=== PATIENT | male | born 1995 | race Caucasian/White ===

== ENCOUNTER 2017-12-20 23:07 | Inpatient (IN) | payer OTHER, BC ==
[2017-12-20] MEDS ORDERED: Ondansetron 4 MG/2 ML SDV IVPUSH ONE (23:41)
[2017-12-20] MEDS ORDERED: HYDROmorphone 0.5 MG/0.5 ML SYRINGE IVPUSH STA (23:43)
[2017-12-20] MEDS ORDERED: Sodium Chloride 0.9% 1,000 ML IV SCH (23:45)
--- NOTE | 2017-12-20 23:49 | EDM.PDOC ---
ED HPI GENERAL MEDICAL PROBLEM - General Chief Complaint: Abdominal Pain Stated Complaint: ABDOMINAL PAIN Time Seen by Provider: 12/20/17 23:30 Source of Information: Reports: Patient, Significant Other (Fiance) History Limitations: Reports: No Limitations - History of Present Illness INITIAL COMMENTS - FREE TEXT/NARRATIVE: The patient states that he had right shoulder, mid and lower back pain yesterday , then some left flank pain today. He presents, however, primarily complaining of lower abdominal pain since this morning, and a fever this afternoon. His abdominal pain is sharp in character. It is worse when he exhales and with movement. His fever was up to 101 this afternoon, then resolved around 18:00 this evening. The patient also complains of a headache all day today. He has had nausea, but no emesis. He has not had a bowel movement in the past 2 or 3 days. No recent diarrhea. He does not have dysuria, but does state that he has had urinary frequency, although no urinary urgency. No gross hematuria. No prior similar symptoms. Here in the ED, the patient is afebrile. The patient's last oral solid food was around 19:15 this evening. The patient's PCP is Dr. Anthony. Lower Abdominal Pain Score (Numeric/FACES): 5 - Related Data Allergies Allergy/AdvReac Type Severity Reaction Status Date / Time No Known Allergies Allergy Verified 12/20/17 23:18 Home Meds: Home Meds . [No Known Home Meds] 12/20/17 [History] Past Medical History - Past Surgical History HEENT Surgical History: Reports: Myringotomy w Tube(s) (bilateral) Social & Family History - Tobacco Use Smoking Status *Q: Never Smoker Tobacco Use Within Last Twelve Months: Cigars (on occasion) - Alcohol Use Alcohol Use History: Yes Alcohol Use Frequency: Socially (rarely to excess) - Recreational Drug Use Recreational Drug Use: No - Living Situation & Occupation Living situation: Reports: Single, with Significant Other (Fiance) Occupation: Employed ([employer]) ED ROS GENERAL - Review of Systems Review Of Systems: ROS reveals no pertinent complaints other than HPI. ED EXAM, GI/ABD - Physical Exam Exam: See Below Exam Limited By: No Limitations General Appearance: Alert, WD/WN, No Apparent Distress Eyes: Bilateral: Normal Appearance, EOMI Ears: Normal External Exam, Hearing Grossly Normal Nose: Normal Inspection, No Blood Throat/Mouth: Normal Inspection, Normal Lips, Normal Voice, No Airway Compromise Head: Atraumatic, Normocephalic Neck: Normal Inspection, Full Range of Motion Respiratory/Chest: No Respiratory Distress, Lungs Clear, Normal Breath Sounds, No Accessory Muscle Use Cardiovascular: Normal Peripheral Pulses, Regular Rate, Rhythm, No Edema, No Gallop, No JVD, No Murmur, No Rub GI/Abdominal Exam: Normal Bowel Sounds, Soft, No Organomegaly, No Distention, No Abnormal Bruit, No Mass, Tender (Primarily in the epigastrium and suprapubically, but there is also tenderness generally, including the left and right sides of the abdomen.), Other (Obese). No: Rebound (Male) Exam: Deferred Rectal (Males) Exam: Deferred Back Exam: Normal Inspection, Full Range of Motion. No: CVA Tenderness (L), CVA Tenderness (R) Extremities: Normal Inspection, Normal Range of Motion, No Pedal Edema, Normal Capillary Refill Neurological: Alert, Oriented, Normal Cognition, No Motor/Sensory Deficits Psychiatric: Normal Affect Skin Exam: Warm, Dry, Intact, Normal Color, No Rash Course - Vital Signs Last Recorded V/S: Last Vital Signs Temp 37.1 C 12/20/17 23:16 Pulse 98 12/20/17 23:16 Resp 16 12/20/17 23:16 BP 150/81 H 12/20/17 23:16 Pulse Ox 99 12/20/17 23:16 - Orders/Labs/Meds Orders: Active Orders 24 hr Category Date Time Status Abdomen Pelvis w Cont [CT] Stat Exams 12/20/17 23:42 Taken UA W/MICROSCOPIC [URIN] Stat Lab 12/20/17 23:50 Ordered Sodium Chloride 0.9% [Normal Saline] 1,000 ml Med 12/20/17 23:45 Active IV ASDIRECTED Medication Orders Sodium Chloride (Normal Saline) 1,000 mls @ 150 mls/hr IV ASDIRECTED MELISSA Last Admin: 12/20/17 23:52 Dose: 150 mls/hr Labs: Laboratory Tests 12/20/17 12/20/17 12/20/17 Range/Units 23:50 23:50 23:50 WBC 13.55 H (4.23-9.07) K/mm3 RBC 5.33 (4.63-6.08) M/mm3 Hgb 15.2 (13.7-17.5) gm/L Hct 43.9 (40.1-51.0) % MCV 82.4 (79.0-92.2) fl MCH 28.5 (25.7-32.2) pg MCHC 34.6 (32.2-35.5) g/dl RDW Std Deviation 38.4 (35.1-43.9) fL Plt Count 231 (163-337) K/mm3 MPV 10.0 (9.4-12.3) fl Neutrophils % (Manual) 50 (40-60) % Band Neutrophils % 0 (0-10) % Lymphocytes % (Manual) 15 L (20-40) % Atypical Lymphs % 20 % Monocytes % (Manual) 11 H (2-10) % Eosinophils % (Manual) 2 (0.8-7.0) % Basophils % (Manual) 2 H (0.2-1.2) Toxic Granulation 2+ moderate Dohle Bodies Platelet Estimate Adequate Plt Morphology Comment See note RBC Morph Comment Normal Sodium 139 (136-145) mEq/L Potassium 3.8 (3.5-5.1) mEq/L Chloride 103 (98-107) mEq/L Carbon Dioxide 27 (21-32) mEq/L Anion Gap 12.8 (5-15) BUN 12 (7-18) mg/dL Creatinine 1.1 (0.7-1.3) mg/dL Est Cr Clr Drug Dosing 120.39 mL/min Estimated GFR (MDRD) > 60 (>60) mL/min BUN/Creatinine Ratio 10.9 L (14-18) Glucose 112 H (74-106) mg/dL Calcium 9.3 (8.5-10.1) mg/dL Total Bilirubin 0.6 (0.2-1.0) mg/dL AST 61 H (15-37) U/L ALT 118 H (16-63) U/L Alkaline Phosphatase 67 (46-116) U/L Total Protein 7.7 (6.4-8.2) g/dl Albumin 4.0 (3.4-5.0) g/dl Globulin 3.7 gm/dL Albumin/Globulin Ratio 1.1 (1-2) Lipase 1071 H (73-393) U/L Urine Color Yellow (Yellow) Urine Appearance Slt cloudy H (Clear) Urine pH 7.0 (5.0-8.0) Ur Specific [place] 1.020 (1.005-1.030) Urine Protein Negative (Negative) Urine Glucose (UA) Negative (Negative) Urine Ketones Negative (Negative) Urine Occult Blood Negative (Negative) Urine Nitrite Negative (Negative) Urine Bilirubin Negative (Negative) Urine Urobilinogen 0.2 (0.2-1.0) Ur Leukocyte Esterase Negative (Negative) Urine RBC 0-5 (0-5) /hpf Urine WBC 0-5 (0-5) /hpf Ur Epithelial Cells 0-5 (0-5) /hpf Amorphous Sediment Many H (NOT SEEN) /hpf Urine Bacteria Rare (FEW) /hpf Hyaline Casts 0-5 (0-5) /lpf Urine Mucus Not seen (FEW) /hpf Meds: Medications Generic Name Dose Route Start Last Admin Trade Name Freq PRN Reason Stop Dose Admin Sodium Chloride 1,000 mls @ 150 mls/hr 12/20/17 23:45 12/20/17 23:52 Normal Saline IV 150 mls/hr ASDIRECTED MELISSA Administration Discontinued Medications Generic Name Dose Route Start Last Admin Trade Name Freq PRN Reason Stop Dose Admin Hydromorphone HCl 1 mg 12/20/17 23:43 12/20/17 23:54 Dilaudid IVPUSH 12/20/17 23:44 1 mg ONETIME STA Administration Ondansetron HCl 4 mg 12/20/17 23:41 12/20/17 23:52 Zofran IVPUSH 12/20/17 23:42 4 mg ONETIME ONE Administration - Re-Assessments/Exams Free Text/Narrative Re-Assessment/Exam: 12/21/17 02:50 CT of the abdomen and pelvis with oral and IV contrast is read by [facility] as: 1. Hepatomegaly, hepatic steatosis. 2. Possible mild peripancreatic mesenteric fat stranding. Possible acute pancreatitis. Correlation with serum lipase. 3. No CT findings of acute appendicitis. 12/21/17 02:56 Test results discussed with the patient and his fiance. The patient appears to have mild/early pancreatitis. I'm recommending admission to the hospital for IV fluid, pain medication, and anti-nausea medication as needed. He is agreeable. Paging Dr. Hummel. 12/21/17 02:[address] Hummel at 02:57. He accepts the patient for admission, and asked that I write bridge orders. Departure - Departure Time of Disposition: 02:59 Disposition: Admitted As Inpatient 64 Condition: Fair Clinical Impression: Acute pancreatitis - Discharge Information *PRESCRIPTION DRUG MONITORING PROGRAM REVIEWED*: Not Applicable *COPY OF PRESCRIPTION DRUG MONITORING REPORT IN PATIENT BRITNEY: Not Applicable - My Orders Last 24 Hours: My Active Orders 12/20/17 23:42 Abdomen Pelvis w Cont [CT] Stat 12/20/17 23:45 Sodium Chloride 0.9% [Normal Saline] 1,000 ml IV ASDIRECTED 12/20/17 23:50 UA W/MICROSCOPIC [URIN] Stat - Assessment/Plan Last 24 Hours: My Active Orders 12/20/17 23:42 Abdomen Pelvis w Cont [CT] Stat 12/20/17 23:45 Sodium Chloride 0.9% [Normal Saline] 1,000 ml IV ASDIRECTED 12/20/17 23:50 UA W/MICROSCOPIC [URIN] Stat
[2017-12-21] MEDS ORDERED: HYDROmorphone 2 MG Tab PO PRN (04:03)
[2017-12-21] MEDS ORDERED: Ondansetron 4 MG/2 ML SDV IVPUSH PRN (04:04)
[2017-12-21] MEDS ORDERED: Sodium Chloride 0.9% 1,000 ML IV SCH ×2 (04:15)
[2017-12-21] MEDS ORDERED: HYDROmorphone 0.5 MG/0.5 ML SYRINGE IVPUSH PRN ×2 (05:49→06:32)
[2017-12-21] MEDS ORDERED: LORazepam 2 MG/ML SDV IVPUSH PRN (06:25)
[2017-12-21] MEDS ORDERED: Metoprolol Tartrate 5 MG/5 ML SDV IVPUSH PRN (06:25)
[2017-12-21] MEDS ORDERED: hydrALAZINE 20 MG/ML SDV IVPUSH PRN (06:25)
[2017-12-21] MEDS ORDERED: Bisacodyl 5 MG Tab PO PRN (06:27)
[2017-12-21] MEDS ORDERED: Acetaminophen 325 MG Tab PO PRN (06:27)
[2017-12-21] MEDS ORDERED: Promethazine 12.5 MG in Sodium Chloride 0.9% 50 ML IV PRN (06:27)
[2017-12-21] MEDS ORDERED: Albuterol/Ipratropium 3.0-0.5 MG/3 ML Neb Soln NEB PRN (06:27)
[2017-12-21] MEDS ORDERED: Temazepam 15 MG Cap PO PRN (06:27)
[2017-12-21] MEDS ORDERED: Ondansetron 4 MG/2 ML SDV IV PRN (06:27)
[2017-12-21] MEDS ORDERED: Polyethylene Glycol 3350 Powder 17 GM Packet PO PRN (06:27)
[2017-12-21] MEDS ORDERED: Docusate Sodium 100 MG Cap PO PRN (06:27)
[2017-12-21] MEDS: Acetaminophen/HYDROcodone 325-5 MG Tab PO PRN ×3 (07:10→21:05)
--- NOTE | 2017-12-21 07:27 | PCM.HP ---
H&P History of Present Illness - General Date of Service: 12/21/17 Admit Problem/Dx: Admission Diagnosis/Problem Admission Diagnosis/Problem Pancreatitis Source of Information: Patient, Old Records, Provider, RN, RN Notes Reviewed History Limitations: Reports: No Limitations - History of Present Illness Initial Comments - Free Text/Narative: Earnest Benito is a 22yo male who presented to our ED accompanied by his fiance late last night complaining of lower abdominal pain which started that morning and fever that afternoon. He also reports having had a right shoulder along with mid and lower back pain on 12/19/17. Reports abdominal pain is sharp in character and worse with exhalation or movement. Fever was up to 101 prior to coming to the ED however it resolved around 6 PM. Has reported a headache. No nausea or emesis. Denies any bowel movement last 2-3 days. No recent diarrhea. Reports increased urinary frequency however nourgency or dysuria. He is afebrile in the ED. in the ED temperature 37.1 Celsius. Pulse 98. Respirations 16. Blood pressure 150/81. Pulse ox 99%. CBC shows a elevated white count of 13.55. RBCs are normal at 5.33. Hemoglobin 15.2. Hematocrit 43.9. He is normocytic. Pulses are good at 231,000. Neutrophils are normal at 50%. There is no bandemia. Sodium was good at 139. Potassium 3.8. Chloride 103. Carbon dioxide 27. Anion gap 12.8. BUN is 12. Creatinine 1.1. EGFR greater than 60. Glucose is slightly high at 112. Calcium is 9.3. Bilirubin 0.6. AST is elevated at 61, ALT elevated at18, alkaline phosphatase is 67. Albumin is 4.0. Lipase is very high at 1071. UA is grossly normal. He is given 1 mg Dilaudid for pain. 4 mg IV push Zofran and started on saline at [address] scan of the abdomen and pelvis with oral and IV contrast is interpreted by virtual radiology as: "1. Hepatomegaly, hepatic steatosis. 2. Possible mild peripancreatic mesenteric fat stranding. Possible acute pancreatitis Correlation with serum lipase. 3. No cT findings of acute appendicitis. He subsequently admitted to the medical floor. He carries a history of migraines. He is a full code. His PCP is Dr. Anthony here at [facility]. Lower Abdominal Pain Score (Numeric/FACES): 5 - Related Data Allergies/Adverse Reactions: Allergies Allergy/AdvReac Type Severity Reaction Status Date / Time No Known Allergies Allergy Verified 12/21/17 05:52 Home Medications: Home Meds . [No Known Home Meds] 12/20/17 [History] Past Medical History - Past Health History Medical/Surgical History: Denies Medical/Surgical History Genitourinary History: Reports: Pyelonephritis - Past Surgical History Head Surgeries/Procedures: Reports: None HEENT Surgical History: Reports: Myringotomy w Tube(s) Male Surgical History: Reports: None Social & Family History - Family History Family Medical History: Noncontributory - Tobacco Use Smoking Status *Q: Former Smoker Used Tobacco, but Quit: No Second Hand Smoke Exposure: No - Caffeine Use Caffeine Use: Reports: Coffee - Recreational Drug Use Recreational Drug Use: No - Living Situation & Occupation Living situation: Reports: Single, with Significant Other (Fiance) Occupation: Employed ([employer]) H&P Review of Systems - Review of Systems: Review Of Systems: See Below General: Reports: Fever, Chills, Malaise, Weakness, Fatigue. Denies: Decreased Appetite, Weight Loss, Weight Gain HEENT: Reports: Headaches, Visual Changes. Denies: Eye Pain, Post Nasal Drip, Sore Throat, Vertigo Pulmonary: Reports: No Symptoms. Denies: Shortness of Breath, Wheezing, Cough, Sputum Cardiovascular: Reports: No Symptoms. Denies: Chest Pain, Palpitations, Dyspnea on Exertion, Edema, Lightheadedness Gastrointestinal: Reports: Abdominal Pain (LUQ ), Nausea. Denies: Constipation , Diarrhea, Vomiting Genitourinary: Reports: No Symptoms Musculoskeletal: Reports: No Symptoms Skin: Reports: No Symptoms Psychiatric: Reports: No Symptoms Neurological: Reports: No Symptoms Hematologic/Lymphatic: Reports: No Symptoms Immunologic: Reports: No Symptoms Exam - Exam Exam: See Below - Vital Signs Vital Signs: Last Vital Signs Temp 98.2 F 12/21/17 03:45 Pulse 110 H 12/21/17 03:45 Resp 16 12/21/17 03:45 BP 138/82 12/21/17 03:45 Pulse Ox 99 12/21/17 03:45 Weight: 225 lb 9.6 oz - Exam Quality Assessment: DVT Prophylaxis General: Alert, Oriented, Cooperative. No: Mild Distress HEENT: Conjunctiva Clear, EACs Clear, EOMI, Hearing Intact, Nares Patent, Posterior Pharynx Clear, PERRLA Neck: Supple, Trachea Midline. No: JVD Lungs: Clear to Auscultation, Normal Respiratory Effort Cardiovascular: Regular Rate, Regular Rhythm GI/Abdominal Exam: Normal Bowel Sounds, Soft, No Distention, Tender (LUQ and epigastrium on palpation ) (Male) Exam: Deferred Rectal (Males) Exam: Deferred Back Exam: Normal Inspection, Full Range of Motion Extremities: Normal Inspection, Normal Range of Motion, Non-Tender, No Pedal Edema, Normal Capillary Refill Peripheral Pulses: 2+: Posterior Tibial (L), Posterior Tibial (R), Dorsalis Pedis (L), Dorsalis Pedis (R), 3+: Radial (L), Radial (R) Skin: Warm, Dry, Intact Neurological: Cranial Nerves Intact (grossly ) Neuro Extensive - Mental Status: Alert, Oriented x3, Normal Mood/Affect, Normal Cognition, Memory Intact Psychiatric: Alert, Normal Affect, Normal Mood - Patient Data Lab Results Last 24 hrs: Laboratory Results - last 24 hr 12/20/17 12/20/17 12/20/17 Range/Units 23:50 23:50 23:50 WBC 13.55 H (4.23-9.07) K/mm3 RBC 5.33 (4.63-6.08) M/mm3 Hgb 15.2 (13.7-17.5) gm/L Hct 43.9 (40.1-51.0) % MCV 82.4 (79.0-92.2) fl MCH 28.5 (25.7-32.2) pg MCHC 34.6 (32.2-35.5) g/dl RDW Std Deviation 38.4 (35.1-43.9) fL Plt Count 231 (163-337) K/mm3 MPV 10.0 (9.4-12.3) fl Neutrophils % (Manual) 50 (40-60) % Band Neutrophils % 0 (0-10) % Lymphocytes % (Manual) 15 L (20-40) % Atypical Lymphs % 20 % Monocytes % (Manual) 11 H (2-10) % Eosinophils % (Manual) 2 (0.8-7.0) % Basophils % (Manual) 2 H (0.2-1.2) Toxic Granulation 2+ moderate Dohle Bodies Platelet Estimate Adequate Plt Morphology Comment See note RBC Morph Comment Normal Sodium 139 (136-145) mEq/L Potassium 3.8 (3.5-5.1) mEq/L Chloride 103 (98-107) mEq/L Carbon Dioxide 27 (21-32) mEq/L Anion Gap 12.8 (5-15) BUN 12 (7-18) mg/dL Creatinine 1.1 (0.7-1.3) mg/dL Est Cr Clr Drug Dosing 120.39 mL/min Estimated GFR (MDRD) > 60 (>60) mL/min BUN/Creatinine Ratio 10.9 L (14-18) Glucose 112 H (74-106) mg/dL Calcium 9.3 (8.5-10.1) mg/dL Total Bilirubin 0.6 (0.2-1.0) mg/dL AST 61 H (15-37) U/L ALT 118 H (16-63) U/L Alkaline Phosphatase 67 (46-116) U/L C-Reactive Protein (<1.0) mg/dL Total Protein 7.7 (6.4-8.2) g/dl Albumin 4.0 (3.4-5.0) g/dl Globulin 3.7 gm/dL Albumin/Globulin Ratio 1.1 (1-2) Triglycerides (<150) mg/dL Cholesterol (<200) mg/dL LDL Cholesterol Direct (<100) mg/dL HDL Cholesterol (40-59) mg/dL Lipase 1071 H (73-393) U/L Urine Color Yellow (Yellow) Urine Appearance Slt cloudy H (Clear) Urine pH 7.0 (5.0-8.0) Ur Specific [place] 1.020 (1.005-1.030) Urine Protein Negative (Negative) Urine Glucose (UA) Negative (Negative) Urine Ketones Negative (Negative) Urine Occult Blood Negative (Negative) Urine Nitrite Negative (Negative) Urine Bilirubin Negative (Negative) Urine Urobilinogen 0.2 (0.2-1.0) Ur Leukocyte Esterase Negative (Negative) Urine RBC 0-5 (0-5) /hpf Urine WBC 0-5 (0-5) /hpf Ur Epithelial Cells 0-5 (0-5) /hpf Amorphous Sediment Many H (NOT SEEN) /hpf Urine Bacteria Rare (FEW) /hpf Hyaline Casts 0-5 (0-5) /lpf Urine Mucus Not seen (FEW) /hpf // Range/Units 23:50 WBC (4.23-9.07) K/mm3 RBC (4.63-6.08) M/mm3 Hgb (13.7-17.5) gm/L Hct (40.1-51.0) % MCV (79.0-92.2) fl MCH (25.7-32.2) pg MCHC (32.2-35.5) g/dl RDW Std Deviation (35.1-43.9) fL Plt Count (163-337) K/mm3 MPV (9.4-12.3) fl Neutrophils % (Manual) (40-60) % Band Neutrophils % (0-10) % Lymphocytes % (Manual) (20-40) % Atypical Lymphs % % Monocytes % (Manual) (2-10) % Eosinophils % (Manual) (0.8-7.0) % Basophils % (Manual) (0.2-1.2) Toxic Granulation Dohle Bodies Platelet Estimate Plt Morphology Comment RBC Morph Comment Sodium (136-145) mEq/L Potassium (3.5-5.1) mEq/L Chloride (98-107) mEq/L Carbon Dioxide (21-32) mEq/L Anion Gap (5-15) BUN (7-18) mg/dL Creatinine (0.7-1.3) mg/dL Est Cr Clr Drug Dosing mL/min Estimated GFR (MDRD) (>60) mL/min BUN/Creatinine Ratio (14-18) Glucose (74-106) mg/dL Calcium (8.5-10.1) mg/dL Total Bilirubin (0.2-1.0) mg/dL AST (15-37) U/L ALT (16-63) U/L Alkaline Phosphatase (46-116) U/L C-Reactive Protein 16.0 H* (<1.0) mg/dL Total Protein (6.4-8.2) g/dl Albumin (3.4-5.0) g/dl Globulin gm/dL Albumin/Globulin Ratio (1-2) Triglycerides 120 (<150) mg/dL Cholesterol 119 (<200) mg/dL LDL Cholesterol Direct 65 (<100) mg/dL HDL Cholesterol 33.0 L (40-59) mg/dL Lipase (73-393) U/L Urine Color (Yellow) Urine Appearance (Clear) Urine pH (5.0-8.0) Ur Specific [place] (1.005-1.030) Urine Protein (Negative) Urine Glucose (UA) (Negative) Urine Ketones (Negative) Urine Occult Blood (Negative) Urine Nitrite (Negative) Urine Bilirubin (Negative) Urine Urobilinogen (0.2-1.0) Ur Leukocyte Esterase (Negative) Urine RBC (0-5) /hpf Urine WBC (0-5) /hpf Ur Epithelial Cells (0-5) /hpf Amorphous Sediment (NOT SEEN) /hpf Urine Bacteria (FEW) /hpf Hyaline Casts (0-5) /lpf Urine Mucus (FEW) /hpf Result Diagrams: 12/20/17 23:50 12/20/17 23:50 - Problem List (1) Acute pancreatitis SNOMED Code(s): 382731077 ICD Code: K85.90 - ACUTE PANCREATITIS WITHOUT NECROSIS OR INFECTION, UNSP Status: Acute Priority: High Current Visit: Yes Qualifiers: Pancreatitis type: unspecified pancreatitis type Acute pancreatitis complication: unspecified Qualified Code(s): K85.90 - Acute pancreatitis without necrosis or infection, unspecified (2) History of migraine headaches SNOMED Code(s): 708317236 ICD Code: Z86.69 - PERSONAL HISTORY OF DIS OF THE NERVOUS SYS AND SENSE ORGANS Status: Chronic Priority: Medium Current Visit: Yes (3) Headache SNOMED Code(s): 83767525 ICD Code: R51 - HEADACHE Status: Acute Priority: Medium Current Visit: Yes Qualifiers: Headache type: tension-type Headache chronicity pattern: acute headache Intractability: not intractable Qualified Code(s): G44.209 - Tension-type headache, unspecified, not intractable (4) Transaminitis SNOMED Code(s): 103872843, 997623066 ICD Code: R74.0 - NONSPEC ELEV OF LEVELS OF TRANSAMNS & LACTIC ACID DEHYDRGNSE Status: Acute Priority: High Current Visit: Yes Problem List Initiated/Reviewed/Updated: Yes Orders Last 24hrs: Active Orders 24 hr Category Date Time Status Admission Status [Patient Status] [ADT] Routine ADT 12/21/17 03:09 Active Activity as Tolerated [RC] BID Care 12/21/17 04:02 Active Intake and Output [RC] QSHIFT Care 12/21/17 06:27 Active Oxygen Therapy [RC] PRN Care 12/21/17 06:27 Active RT Aerosol Therapy [RC] ASDIRECTED Care 12/21/17 06:28 Active Up ad Marisel [RC] BID Care 12/21/17 06:27 Active VTE/DVT Education [RC] DAILY Care 12/21/17 06:27 Active Vital Signs [RC] Q4HR Care 12/21/17 06:27 Active Consult to Extension Work Instructor [CONS] Routine Cons 12/21/17 06:27 Active NPO Now [Nothing per Oral Now Diet] [DIET] Diet 12/21/17 Breakfast Active Abdomen Pelvis w Cont [CT] Stat Exams 12/20/17 23:42 Taken BASIC METABOLIC PANEL,BMP [CHEM] AM Lab 12/22/17 05:11 Ordered BASIC METABOLIC PANEL,BMP [CHEM] AM Lab 12/23/17 05:11 Ordered BASIC METABOLIC PANEL,BMP [CHEM] AM Lab 12/24/17 05:11 Ordered BASIC METABOLIC PANEL,BMP [CHEM] AM Lab 12/25/17 05:11 Ordered BASIC METABOLIC PANEL,BMP [CHEM] Routine Lab 12/21/17 16:00 Ordered CBC WITH AUTO DIFF [HEME] AM Lab 12/22/17 05:11 Ordered CBC WITH AUTO DIFF [HEME] AM Lab 12/23/17 05:11 Ordered CBC WITH AUTO DIFF [HEME] AM Lab 12/24/17 05:11 Ordered CBC WITH AUTO DIFF [HEME] AM Lab 12/25/17 05:11 Ordered CRP [C-REACTIVE PROTEIN] [CHEM] AM Lab 12/22/17 05:11 Ordered CRP [C-REACTIVE PROTEIN] [CHEM] AM Lab 12/23/17 05:11 Ordered CRP [C-REACTIVE PROTEIN] [CHEM] AM Lab 12/24/17 05:11 Ordered CRP [C-REACTIVE PROTEIN] [CHEM] AM Lab 12/25/17 05:11 Ordered LIPASE [CHEM] AM Lab 12/22/17 05:11 Ordered LIPASE [CHEM] AM Lab 12/23/17 05:11 Ordered LIPASE [CHEM] AM Lab 12/24/17 05:11 Ordered LIPASE [CHEM] AM Lab 12/25/17 05:11 Ordered MAGNESIUM [CHEM] AM Lab 12/22/17 05:11 Ordered MAGNESIUM [CHEM] AM Lab 12/23/17 05:11 Ordered MAGNESIUM [CHEM] AM Lab 12/24/17 05:11 Ordered MAGNESIUM [CHEM] AM Lab 12/25/17 05:11 Ordered MAGNESIUM [CHEM] Routine Lab 12/21/17 16:00 Ordered UA W/MICROSCOPIC [URIN] Stat Lab 12/20/17 23:50 Ordered Acetaminophen [Tylenol] Med 12/21/17 06:27 Active 650 mg PO Q4H PRN Acetaminophen/HYDROcodone [[place] 325-5 MG] Med 12/21/17 06:27 Active 1 tab PO Q4H PRN Albuterol/Ipratropium [DuoNeb 3.0-0.5 MG/3 ML] Med 12/21/17 06:27 Active 3 ml NEB Q4H PRN Bisacodyl [Dulcolax] Med 12/21/17 06:27 Active 5 mg PO DAILY PRN Docusate Sodium [Colace] Med 12/21/17 06:27 Active 100 mg PO BID PRN Docusate Sodium/Sennosides [Senna Plus] Med 12/21/17 06:27 Active 1 tab PO BID PRN HYDROmorphone [Dilaudid] Med 12/21/17 06:32 Active 1 mg IVPUSH Q4H PRN LORazepam [Ativan] Med 12/21/17 06:25 Active 2 mg IVPUSH Q4H PRN Magnesium Rep Pharmacy to Dose [Pharmacy to Dose - Med 12/21/17 06:30 Active Magnesium Replacement] 0 dose .XX ASDIRECTED PRN Metoprolol Tartrate [Lopressor] Med 12/21/17 06:25 Active 5 mg IVPUSH Q4H PRN Ondansetron [Zofran] Med 12/21/17 06:27 Active 4 mg IV Q6H PRN Ondansetron [Zofran] Med 12/21/17 04:04 Active 4 mg IVPUSH Q8H PRN Polyethylene Glycol 3350 [MiraLAX] Med 12/21/17 06:27 Active 17 gm PO DAILY PRN Potassium Rep Pharmacy to Dose [Pharmacy to Dose - Med 12/21/17 06:30 Active Potassium Replacement] 0 dose .XX ASDIRECTED PRN Promethazine [Phenergan] 12.5 mg Med 12/21/17 06:27 Active Sodium Chloride 0.9% [Normal Saline] 50 ml IV Q6H Sodium Chloride 0.9% [Normal Saline] 1,000 ml Med 12/20/17 23:45 Active IV ASDIRECTED Sodium Chloride 0.9% [Normal Saline] 1,000 ml Med 12/21/17 04:15 Active IV ASDIRECTED Temazepam [Restoril] Med 12/21/17 06:27 Active 15 mg PO BEDTIME PRN hydrALAZINE [Apresoline] Med 12/21/17 06:25 Active 20 mg IVPUSH Q4H PRN Sequential Compression Device [OM.PC] Per Unit Routine Oth 12/21/17 06:27 Ordered Code Status [Resuscitation Status] Stat Resus Stat 12/21/17 04:01 Ordered Medication Orders Acetaminophen (Tylenol) 650 mg PO Q4H PRN PRN Reason: Pain (Mild 1-3)/fever Hydrocodone Bitart/Acetaminophen ([place] 325-5 Mg) 1 tab PO Q4H PRN PRN Reason: Pain (moderate 4-6) Last Admin: 12/21/17 07:10 Dose: 1 tab Albuterol/Ipratropium (Duoneb 3.0-0.5 Mg/3 Ml) 3 ml NEB Q4H PRN PRN Reason: Shortness Of Breath/wheezing Bisacodyl (Dulcolax) 5 mg PO DAILY PRN PRN Reason: Constipation Docusate Sodium (Colace) 100 mg PO BID PRN PRN Reason: Constipation Hydralazine HCl (Apresoline) 20 mg IVPUSH Q4H PRN PRN Reason: Hypertension Hydromorphone HCl (Dilaudid) 1 mg IVPUSH Q4H PRN PRN Reason: Pain Sodium Chloride (Normal Saline) 1,000 mls @ 150 mls/hr IV ASDIRECTED MELISSA Last Admin: 12/20/17 23:52 Dose: 150 mls/hr Sodium Chloride (Normal Saline) 1,000 mls @ 250 mls/hr IV ASDIRECTED MELISSA Promethazine HCl 12.5 mg/ (Sodium Chloride) 50.5 mls @ 100 mls/hr IV Q6H PRN PRN Reason: Nausea/Vomiting Lorazepam (Ativan) 2 mg IVPUSH Q4H PRN PRN Reason: Seizures Magnesium Sulfate (Pharmacy To Dose - Magnesium Replacement) 0 dose .XX ASDIRECTED PRN PRN Reason: RX TO WATCH MAG LEVELS Metoprolol Tartrate (Lopressor) 5 mg IVPUSH Q4H PRN PRN Reason: Tachycardia Ondansetron HCl (Zofran) 4 mg IVPUSH Q8H PRN PRN Reason: Nausea Ondansetron HCl (Zofran) 4 mg IV Q6H PRN PRN Reason: Nausea/Vomiting Polyethylene Glycol (Miralax) 17 gm PO DAILY PRN PRN Reason: Constipation Potassium Chloride (Pharmacy To Dose - Potassium Replacement) 0 dose .XX ASDIRECTED PRN PRN Reason: RX TO WATCH K LEVELS Senna/Docusate Sodium (Senna Plus) 1 tab PO BID PRN PRN Reason: Constipation Temazepam (Restoril) 15 mg PO BEDTIME PRN PRN Reason: Sleep Assessment/Plan Comment:: I/P: Acute pancreatitis -Reports abdominal pain, fever, right shoulder, and nausea for past few days -Denies any ETOH this weekend, no history of gallbladder problems -WBC 13.55 -CRP 16 -Lipase 1071 -Lipid panel: triglycerides 120, total cholesterol 119, LDL 65, HDL 33 -CT scan in ED (12/21/17) 1. Hepatomegaly, hepatic steatosis 2. Possible mild peripancreatic mesenteric fat stranding. Possible acute pancreatitis. Coorelation with serum lipase. 3. No CT findings of acute appendicitis -IV fluids as ordered -NPO for now -Extension Work Instructor consult -Iban's Criteria: 1 point on admission (1% predicted mortality) -Gallbladder US - ordered Transaminitis -AST 61 -ALT 118 -Alk Phos 67 -LDH 387 -US as above -Monitor Headache, improved to resolved -Reports hx/o migranes with sumatriptan auto-injector at home -Reports this does not feel like migraine -Reports daily caffeine consumption -Fioricet Q4HR PRN Chronic: Migraine headaches Plan: Admit to medical floor Ambulating with ease so no PT/OT for now Routine AM labs PE/DVT prophylaxis: SCDs Hold home Triptian Auto-injector
[2017-12-21] MEDS ORDERED: Acetaminophen/Butalbital/Caffeine 325-50-40 MG Tab PO PRN (08:01)
--- NOTE | 2017-12-21 10:01 | CT ---
CT abdomen and pelvis Technique: Multiple axial sections were obtained from above the dome of the diaphragm inferiorly through the pubic symphysis. Intravenous and oral contrast was utilized. Delayed images were also obtained through the bladder. Comparison: Prior CT exam of 01/20/16 is available. Findings: Visualized lung bases show nothing acute. Liver shows no focal parenchymal abnormality. Spleen appears within normal limits. Adrenal glands appear within normal limits. Kidneys show symmetric contrast enhancement without hydronephrosis or mass. No abnormality is seen within the pancreas. Aorta shows no aneurysmal dilatation. No retroperitoneal adenopathy or mesenteric abnormalities are seen. Delayed images shows contrast within the distal ureters and bladder. Appendix is seen and is normal in size. No inflammatory change or free fluid is seen. Bone window settings were reviewed which appear within normal limits for the patient's age. Impression: 1. Nothing acute seen on CT study of the abdomen and pelvis. 2. Preliminary report by [facility] mentions several findings which I believe are incidental. Diagnostic code #1 I mostly agree with preliminary report issued by [facility], please see above ([facility] report finalized on 12/21/17, 3:48 AM Central Time)
[2017-12-21] MEDS: Sodium Chloride 0.9% 1,000 ML IV SCH ×4 (11:33→23:32)
--- NOTE | 2017-12-21 13:13 | US ---
Limited abdominal ultrasound: Multiple real-time images of the upper right abdomen were obtained. Comparison: Prior CT abdomen and pelvis exam of 12/20/17. Pancreas appears within normal limits. Liver shows no focal parenchymal abnormality. Gallbladder contains no gallstones. No gallbladder wall thickening or biliary duct dilatation is seen. Right kidney shows no hydronephrosis or mass. Impression: 1. No abnormality is identified on right upper quadrant abdominal ultrasound exam. Diagnostic code #1
[2017-12-21] MEDS ORDERED: Scopolamine 1.5 MG Transdermal Patch TRDERM PRN (14:12)
[2017-12-21] MEDS ORDERED: cefTRIAXone 2 GM Vial IVPUSH SCH (22:15)
--- NOTE | 2017-12-21 22:22 | PCM.SN ---
- Free Text/Narrative Note: Was updated by nursing that Earnest meet's Sepsis criteria. Earnest's temperature had risen to above 101 but has since gone down below 100.4. However, his heart rate has been >90, WBC 13.55, and he is being treated for pancreatitis, therefore he meets sepsis criteria. I am ordering blood cultures, lactic acid and will give broad spectrum antibiotics. He is already receiving IVF so we will continue that for now.
[2017-12-21] MEDS ORDERED: cefTRIAXone 1 GM Vial IM ONE ×2 (22:26)
[2017-12-21] MEDS: Vancomycin 1500 MG in Sodium Chloride 0.9% 500 ML IV SCH ×3 (23:34)
[2017-12-22] MEDS ORDERED: Dexamethasone 4 MG/ML SDV IVPUSH ONE (01:46)
[2017-12-22] MEDS ORDERED: diphenhydrAMINE 50 MG/ML SDV IVPUSH ONE (01:46)
[2017-12-22] MEDS: Sodium Chloride 0.9% 1,000 ML IV SCH (06:25)
[2017-12-22] MEDS: Vancomycin 1500 MG in Sodium Chloride 0.9% 500 ML IV SCH ×3 (06:31)
--- NOTE | 2017-12-22 08:21 | PCM.PN ---
- General Info Date of Service: 12/22/17 Admission Dx/Problem (Free Text): Admission Diagnosis/Problem Admission Diagnosis/Problem Pancreatitis Subjective Update: In to see Earnest. He is lying in bed about to eat breakfast. He reports he feels pretty good today. He states he at supper last night and felt a bit worse after. He apparently was quite warm. His HR was elevated, however he states he had just returned from a walk. No fever. He was started on Vancomycin and Rocephin last night due to his possible sepsis risk. WBC was only moderately elevated yesterday and today. Blood cultures obtained. Discussed this with Dr. Hummel. Lactic acid was 0.6 last night. Will discontinue antibiotics as it is felt he is not septic. He at full liquid breakfast with no issues. Will advance to non-fatty, non-greasy for lunch. Possible discharge tonight or tomorrow. Functional Status: Reports: Pain Controlled, Tolerating Diet, Ambulating, Urinating. Denies: New Symptoms - Review of Systems General: Reports: No Symptoms. Denies: Fever, Weakness, Fatigue, Malaise HEENT: Reports: No Symptoms. Denies: Eye Pain, Sore Throat Pulmonary: Reports: No Symptoms. Denies: Shortness of Breath, Cough, Sputum, Wheezing Cardiovascular: Reports: No Symptoms. Denies: Chest Pain, Palpitations, Dyspnea on Exertion, Edema, Lightheadedness Gastrointestinal: Reports: No Symptoms. Denies: Abdominal Pain, Constipation, Diarrhea, Nausea, Vomiting Genitourinary: Reports: No Symptoms. Denies: Dysuria, Frequency, Burning, Pain Musculoskeletal: Reports: No Symptoms Skin: Reports: No Symptoms Neurological: Reports: No Symptoms. Denies: Confusion, Numbness, Tingling, Difficulty Walking, Weakness, Gait Disturbance Psychiatric: Reports: No Symptoms - Patient Data Vitals - Most Recent: Last Vital Signs Temp 97.7 F 12/22/17 06:30 Pulse 91 12/22/17 06:30 Resp 20 12/22/17 00:01 BP 109/62 12/22/17 06:30 Pulse Ox 95 12/22/17 06:30 Weight - Most Recent: 228 lb 8 oz I&O - Last 24 Hours: Intake & Output 12/21/17 12/22/17 12/22/17 22:59 06:59 14:59 Intake Total 3268 3729 Output Total 4792 1640 Balance 9588 8430 Lab Results Last 24 Hours: Laboratory Results - last 24 hr 12/21/17 12/21/17 12/21/17 Range/Units 06:24 06:24 16:30 WBC (4.23-9.07) K/mm3 RBC (4.63-6.08) M/mm3 Hgb (13.7-17.5) gm/L Hct (40.1-51.0) % MCV (79.0-92.2) fl MCH (25.7-32.2) pg MCHC (32.2-35.5) g/dl RDW Std Deviation (35.1-43.9) fL Plt Count (163-337) K/mm3 MPV (9.4-12.3) fl Neut % (Auto) (34.0-67.9) % Lymph % (Auto) (21.8-53.1) % [place] % (Auto) (5.3-12.2) % Eos % (Auto) (0.8-7.0) Baso % (Auto) (0.1-1.2) % Neut # (Auto) (1.78-5.38) K/mm3 Lymph # (Auto) (1.32-3.57) K/mm3 [place] # (Auto) (0.30-0.82) K/mm3 Eos # (Auto) (0.04-0.54) K/mm3 Baso # (Auto) (0.01-0.08) K/mm3 Manual Slide Review Sodium 136 (136-145) mEq/L Potassium 3.8 (3.5-5.1) mEq/L Chloride 103 (98-107) mEq/L Carbon Dioxide 23 (21-32) mEq/L Anion Gap 13.8 (5-15) BUN 10 (7-18) mg/dL Creatinine 1.0 (0.7-1.3) mg/dL Est Cr Clr Drug Dosing 132.43 mL/min Estimated GFR (MDRD) > 60 (>60) mL/min BUN/Creatinine Ratio 10.0 L (14-18) Glucose 82 (74-106) mg/dL Lactic Acid (0.4-2.0) mmol/L Calcium 8.4 L (8.5-10.1) mg/dL Magnesium 1.9 (1.8-2.4) mg/dl Total Bilirubin (0.2-1.0) mg/dL AST (15-37) U/L ALT (16-63) U/L Alkaline Phosphatase (46-116) U/L Lactate Dehydrogenase 387 H (85-227) U/L Total Protein (6.4-8.2) g/dl Albumin (3.4-5.0) g/dl Globulin gm/dL Albumin/Globulin Ratio (1-2) Lipase 854 H (73-393) U/L 12/21/17 12/22/17 12/22/17 Range/Units 22:15 05:35 05:35 WBC 12.90 H (4.23-9.07) K/mm3 RBC 4.85 (4.63-6.08) M/mm3 Hgb 13.7 (13.7-17.5) gm/L Hct 40.7 (40.1-51.0) % MCV 83.9 (79.0-92.2) fl MCH 28.2 (25.7-32.2) pg MCHC 33.7 (32.2-35.5) g/dl RDW Std Deviation 38.2 (35.1-43.9) fL Plt Count 219 (163-337) K/mm3 MPV 10.9 (9.4-12.3) fl Neut % (Auto) 71.8 H (34.0-67.9) % Lymph % (Auto) 20.2 L (21.8-53.1) % [place] % (Auto) 6.4 (5.3-12.2) % Eos % (Auto) 0.4 L (0.8-7.0) Baso % (Auto) 0.6 (0.1-1.2) % Neut # (Auto) 9.25 H (1.78-5.38) K/mm3 Lymph # (Auto) 2.61 (1.32-3.57) K/mm3 [place] # (Auto) 0.83 H (0.30-0.82) K/mm3 Eos # (Auto) 0.05 (0.04-0.54) K/mm3 Baso # (Auto) 0.08 (0.01-0.08) K/mm3 Manual Slide Review Abnormal smear Sodium 138 (136-145) mEq/L Potassium 4.2 (3.5-5.1) mEq/L Chloride 106 (98-107) mEq/L Carbon Dioxide 22 (21-32) mEq/L Anion Gap 14.2 (5-15) BUN 9 (7-18) mg/dL Creatinine 0.9 (0.7-1.3) mg/dL Est Cr Clr Drug Dosing 147.15 mL/min Estimated GFR (MDRD) > 60 (>60) mL/min BUN/Creatinine Ratio 10.0 L (14-18) Glucose 95 (74-106) mg/dL Lactic Acid 0.6 (0.4-2.0) mmol/L Calcium 8.4 L (8.5-10.1) mg/dL Magnesium 1.8 (1.8-2.4) mg/dl Total Bilirubin 0.6 (0.2-1.0) mg/dL AST 30 (15-37) U/L ALT 81 H (16-63) U/L Alkaline Phosphatase 51 (46-116) U/L Lactate Dehydrogenase (85-227) U/L Total Protein 7.0 (6.4-8.2) g/dl Albumin 3.3 L (3.4-5.0) g/dl Globulin 3.7 gm/dL Albumin/Globulin Ratio 0.9 L (1-2) Lipase 551 H (73-393) U/L Med Orders - Current: Current Medications Acetaminophen (Tylenol) 650 mg PO Q4H PRN PRN Reason: Pain (Mild 1-3)/fever Last Admin: 12/21/17 23:54 Dose: 650 mg Acetaminophen/Butalbital/Caffeine (Fioricet 325-50-40 Mg) 1 tab PO Q4H PRN PRN Reason: Headache Last Admin: 12/21/17 08:10 Dose: 1 tab Hydrocodone Bitart/Acetaminophen ([place] 325-5 Mg) 1 tab PO Q4H PRN PRN Reason: Pain (moderate 4-6) Last Admin: 12/21/17 21:05 Dose: 1 tab Albuterol/Ipratropium (Duoneb 3.0-0.5 Mg/3 Ml) 3 ml NEB Q4H PRN PRN Reason: Shortness Of Breath/wheezing Bisacodyl (Dulcolax) 5 mg PO DAILY PRN PRN Reason: Constipation Docusate Sodium (Colace) 100 mg PO BID PRN PRN Reason: Constipation Hydralazine HCl (Apresoline) 20 mg IVPUSH Q4H PRN PRN Reason: Hypertension Hydromorphone HCl (Dilaudid) 1 mg IVPUSH Q4H PRN PRN Reason: Pain Promethazine HCl 12.5 mg/ (Sodium Chloride) 50.5 mls @ 100 mls/hr IV Q6H PRN PRN Reason: Nausea/Vomiting Sodium Chloride (Normal Saline) 1,000 mls @ 250 mls/hr IV ASDIRECTED [facility] Last Admin: 12/22/17 06:25 Dose: 250 mls/hr Vancomycin HCl 1 gm/Vancomycin HCl 500 mg/ Sodium Chloride 500 mls @ 333.025 mls/hr IV Q8H [facility] Last Admin: 12/22/17 06:31 Dose: 333.025 mls/hr Ceftriaxone Sodium 2 gm/ (Sodium Chloride) 100 mls @ 100 mls/hr IV Q24H [facility] Lorazepam (Ativan) 2 mg IVPUSH Q4H PRN PRN Reason: Seizures Magnesium Sulfate (Pharmacy To Dose - Magnesium Replacement) 0 dose .XX ASDIRECTED PRN PRN Reason: RX TO WATCH MAG LEVELS Metoprolol Tartrate (Lopressor) 5 mg IVPUSH Q4H PRN PRN Reason: Tachycardia Miscellaneous Information (Remove Patch) 0 ea TRDERM Q72H [facility] Ondansetron HCl (Zofran) 4 mg IVPUSH Q8H PRN PRN Reason: Nausea Last Admin: 12/21/17 08:11 Dose: 4 mg Ondansetron HCl (Zofran) 4 mg IV Q6H PRN PRN Reason: Nausea/Vomiting Polyethylene Glycol (Miralax) 17 gm PO DAILY PRN PRN Reason: Constipation Potassium Chloride (Pharmacy To Dose - Potassium Replacement) 0 dose .XX ASDIRECTED PRN PRN Reason: RX TO WATCH K LEVELS Scopolamine (Transderm-Scop) 1.5 mg TRDERM Q72H PRN PRN Reason: Nausea Last Admin: 12/21/17 14:16 Dose: 1.5 mg Senna/Docusate Sodium (Senna Plus) 1 tab PO BID PRN PRN Reason: Constipation Temazepam (Restoril) 15 mg PO BEDTIME PRN PRN Reason: Sleep Vancomycin HCl (Pharmacy To Dose - Vancomycin) 0 dose .XX ASDIRECTED PRN PRN Reason: RX TO DOSE VANCOMYCIN Discontinued Medications Ceftriaxone Sodium (Rocephin) 2 gm IM ONETIME ONE Stop: 12/21/17 22:27 Last Admin: 12/21/17 23:41 Dose: 2 gm Dexamethasone (Dexamethasone) 4 mg IVPUSH ONETIME ONE Stop: 12/22/17 01:47 Last Admin: 12/22/17 01:55 Dose: 4 mg Diphenhydramine HCl (Benadryl) 25 mg IVPUSH ONETIME ONE Stop: 12/22/17 01:47 Last Admin: 12/22/17 01:59 Dose: 25 mg Hydromorphone HCl (Dilaudid) 1 mg IVPUSH ONETIME STA Stop: 12/20/17 23:44 Last Admin: 12/20/17 23:54 Dose: 1 mg Hydromorphone HCl (Dilaudid) 1 mg IVPUSH Q2H PRN PRN Reason: Pain Last Admin: 12/21/17 05:58 Dose: 1 mg Sodium Chloride (Normal Saline) 1,000 mls @ 150 mls/hr IV ASDIRECTED [facility] Last Admin: 12/20/17 23:52 Dose: 150 mls/hr Sodium Chloride (Normal Saline) 1,000 mls @ 250 mls/hr IV ASDIRECTED [facility] Last Admin: 12/21/17 07:20 Dose: 150 mls/hr Sodium Chloride (Normal Saline) 1,000 mls @ 150 mls/hr IV ASDIRECTED [facility] Last Admin: 12/21/17 07:20 Dose: 150 mls/hr Ondansetron HCl (Zofran) 4 mg IVPUSH ONETIME ONE Stop: 12/20/17 23:42 Last Admin: 12/20/17 23:52 Dose: 4 mg - Exam Quality Assessment: DVT Prophylaxis General: Alert, Oriented, Cooperative, No Acute Distress HEENT: Pupils Equal, Pupils Reactive, EOMI, Mucous Membr. Moist/[place] Neck: Supple, Trachea Midline Lungs: Clear to Auscultation, Normal Respiratory Effort Cardiovascular: Regular Rate, Regular Rhythm GI/Abdominal Exam: Normal Bowel Sounds, Soft, Non-Tender, No Distention, No Abnormal Bruit, Pelvis Stable (Male) Exam: Deferred Back Exam: Normal Inspection, Full Range of Motion Extremities: Normal Inspection, Normal Range of Motion, Non-Tender, No Pedal Edema, Normal Capillary Refill Peripheral Pulses: 3+: Radial (L), Radial (R), Posterior Tibial (L), Posterior Tibial (R), Dorsalis Pedis (L), Dorsalis Pedis (R) Skin: Warm, Dry, Intact Neurological: No New Focal Deficit Psy/Mental Status: Alert, Normal Affect, Normal Mood - Problem List & Annotations (1) Acute pancreatitis SNOMED Code(s): 309053841 Code(s): K85.90 - ACUTE PANCREATITIS WITHOUT NECROSIS OR INFECTION, UNSP Status: Acute Priority: High Current Visit: Yes Qualifiers: Pancreatitis type: unspecified pancreatitis type Acute pancreatitis complication: unspecified Qualified Code(s): K85.90 - Acute pancreatitis without necrosis or infection, unspecified (2) History of migraine headaches SNOMED Code(s): 621341270 Code(s): Z86.69 - PERSONAL HISTORY OF DIS OF THE NERVOUS SYS AND SENSE ORGANS Status: Chronic Priority: Medium Current Visit: Yes (3) Headache SNOMED Code(s): 14955879 Code(s): R51 - HEADACHE Status: Acute Priority: Medium Current Visit: Yes Qualifiers: Headache type: tension-type Headache chronicity pattern: acute headache Intractability: not intractable Qualified Code(s): G44.209 - Tension-type headache, unspecified, not intractable (4) Transaminitis SNOMED Code(s): 453590590, 079635264 Code(s): R74.0 - NONSPEC ELEV OF LEVELS OF TRANSAMNS & LACTIC ACID DEHYDRGNSE Status: Acute Priority: High Current Visit: Yes - Problem List Review Problem List Initiated/Reviewed/Updated: Yes - My Orders Last 24 Hours: My Active Orders 12/21/17 08:01 Acetaminophen/Butalbital/Caff [Fioricet 325-50-40 MG] 1 tab PO Q4H PRN 12/22/17 05:35 CMP [COMPREHENSIVE METABOLIC PN,CMP] [CHEM] AM CRP [C-REACTIVE PROTEIN] [CHEM] AM LIPASE [CHEM] AM MAGNESIUM [CHEM] AM 12/23/17 05:11 CBC WITH AUTO DIFF [HEME] AM CMP [COMPREHENSIVE METABOLIC PN,CMP] [CHEM] AM CRP [C-REACTIVE PROTEIN] [CHEM] AM LIPASE [CHEM] AM MAGNESIUM [CHEM] AM 12/24/17 05:11 CBC WITH AUTO DIFF [HEME] AM CMP [COMPREHENSIVE METABOLIC PN,CMP] [CHEM] AM CRP [C-REACTIVE PROTEIN] [CHEM] AM LIPASE [CHEM] AM MAGNESIUM [CHEM] AM 12/25/17 05:11 CBC WITH AUTO DIFF [HEME] AM CMP [COMPREHENSIVE METABOLIC PN,CMP] [CHEM] AM CRP [C-REACTIVE PROTEIN] [CHEM] AM LIPASE [CHEM] AM MAGNESIUM [CHEM] AM - Plan Plan:: I/P: Acute pancreatitis -Reports abdominal pain, fever, right shoulder, and nausea for past few days -Denies any ETOH this weekend, no history of gallbladder problems -WBC 13.55-->12.9 -CRP 16-->21.1 -Lipase 1071-->854-->551 -Lipid panel: triglycerides 120, total cholesterol 119, LDL 65, HDL 33 -CT scan in ED (12/21/17) 1. Hepatomegaly, hepatic steatosis 2. Possible mild peripancreatic mesenteric fat stranding. Possible acute pancreatitis. Coorelation with serum lipase. 3. No CT findings of acute appendicitis -IV fluids as ordered -NPO for now--> advance to clear liquids, full diet at lunch if tolerated -[facility] [employer] consult -[place] Criteria: 1 point on admission (1% predicted mortality) -Gallbladder US - pancreas within upper limits of normal, no gallstones, no gallbladder wall thickening, no abnormality seen -Rocephin and vanco started last night over possible sepsis risk - will discontinue today -Lactic acid yesterday 0.6 Transaminitis, improving -AST 61-->30 -ALT 118-->81 -Alk Phos 67-->51 -LDH 387 -US as above -Monitor Resolved: Headache, improved to resolved -Reports hx/o migranes with sumatriptan auto-injector at home -Reports this does not feel like migraine -Reports daily caffeine consumption -Fioricet Q4HR PRN Chronic: Migraine headaches Plan: Admit to medical floor Ambulating with ease so no PT/OT for now Routine AM labs PE/DVT prophylaxis: SCDs Hold home Triptian Auto-injector Code status: Full code; PCP: Dr. Anthony
[2017-12-22 11:36] VITALS: BP 118/70
--- NOTE | 2017-12-22 13:07 | PCM.DCSUM1 ---
Discharge Summary - Hospital Course HPI Initial Comments: Earnest Benito is a 22yo male who presented to our ED accompanied by his fiance late last night complaining of lower abdominal pain which started that morning and fever that afternoon. He also reports having had a right shoulder along with mid and lower back pain on 12/19/17. Reports abdominal pain is sharp in character and worse with exhalation or movement. Fever was up to 101 prior to coming to the ED however it resolved around 6 PM. Has reported a headache. No nausea or emesis. Denies any bowel movement last 2-3 days. No recent diarrhea. Reports increased urinary frequency however nourgency or dysuria. He is afebrile in the ED. in the ED temperature 37.1 Celsius. Pulse 98. Respirations 16. Blood pressure 150/81. Pulse ox 99%. CBC shows a elevated white count of 13.55. RBCs are normal at 5.33. Hemoglobin 15.2. Hematocrit 43.9. He is normocytic. Pulses are good at 231,000. Neutrophils are normal at 50%. There is no bandemia. Sodium was good at 139. Potassium 3.8. Chloride 103. Carbon dioxide 27. Anion gap 12.8. BUN is 12. Creatinine 1.1. EGFR greater than 60. Glucose is slightly high at 112. Calcium is 9.3. Bilirubin 0.6. AST is elevated at 61, ALT elevated at18, alkaline phosphatase is 67. Albumin is 4.0. Lipase is very high at 1071. UA is grossly normal. He is given 1 mg Dilaudid for pain. 4 mg IV push Zofran and started on saline at [address] scan of the abdomen and pelvis with oral and IV contrast is interpreted by virtual radiology as: "1. Hepatomegaly, hepatic steatosis. 2. Possible mild peripancreatic mesenteric fat stranding. Possible acute pancreatitis Correlation with serum lipase. 3. No cT findings of acute appendicitis. He subsequently admitted to the medical floor. He carries a history of migraines. He is a full code. His PCP is Dr. Raj saba at [facility]. Diagnosis: Stroke: No - Discharge Data Discharge Date: 12/22/17 (Admit date: 12/21/17) Discharge Disposition: Home, Self-Care 01 Condition: Good - Discharge Diagnosis/Problem(s) (1) Acute pancreatitis SNOMED Code(s): 533374878 ICD Code: K85.90 - ACUTE PANCREATITIS WITHOUT NECROSIS OR INFECTION, UNSP Status: Acute Priority: High Current Visit: Yes Qualifiers: Pancreatitis type: unspecified pancreatitis type Acute pancreatitis complication: unspecified Qualified Code(s): K85.90 - Acute pancreatitis without necrosis or infection, unspecified (2) History of migraine headaches SNOMED Code(s): 817175237 ICD Code: Z86.69 - PERSONAL HISTORY OF DIS OF THE NERVOUS SYS AND SENSE ORGANS Status: Chronic Priority: Medium Current Visit: Yes (3) Headache SNOMED Code(s): 13125608 ICD Code: R51 - HEADACHE Status: Acute Priority: Medium Current Visit: Yes Qualifiers: Headache type: tension-type Headache chronicity pattern: acute headache Intractability: not intractable Qualified Code(s): G44.209 - Tension-type headache, unspecified, not intractable (4) Transaminitis SNOMED Code(s): 589651472, 464051950 ICD Code: R74.0 - NONSPEC ELEV OF LEVELS OF TRANSAMNS & LACTIC ACID DEHYDRGNSE Status: Acute Priority: High Current Visit: Yes - Patient Summary/Data Consults: Consultations 12/21/17 06:27 Consult to Salesperson [employer] [CONS] Routine Labs Pending at D/C: Blood cultures Recommended Follow-up Testing/Procedures: Follow-up with PCP within 7-10 days of discharge Hospital Course: Plan:: I/P: Acute pancreatitis -Reports abdominal pain, fever, right shoulder, and nausea for past few days -Denies any ETOH this weekend, no history of gallbladder problems -WBC 13.55-->12.9 -CRP 16-->21.1 -Lipase 1071-->854-->551 -Lipid panel: triglycerides 120, total cholesterol 119, LDL 65, HDL 33 -CT scan in ED (12/21/17) 1. Hepatomegaly, hepatic steatosis 2. Possible mild peripancreatic mesenteric fat stranding. Possible acute pancreatitis. Coorelation with serum lipase. 3. No CT findings of acute appendicitis -IV fluids as ordered -NPO for now--> advance to clear liquids, full diet at lunch -[employer]person [employer] consult -[place]'s Criteria: 1 point on admission (1% predicted mortality) -Gallbladder US - pancreas within upper limits of normal, no gallstones, no gallbladder wall thickening, no abnormality seen -Rocephin and vanco started last night over possible sepsis risk - will discontinue today -Lactic acid yesterday 0.6 Transaminitis, improving -AST 61-->30 -ALT 118-->81 -Alk Phos 67-->51 -LDH 387 -US as above -Monitor Resolved: Headache, improved to resolved -Reports hx/o migranes with sumatriptan auto-injector at home -Reports this does not feel like migraine -Reports daily caffeine consumption -Fioricet Q4HR PRN Chronic: Migraine headaches Plan: Admit to medical floor Ambulating with ease so no PT/OT for now Routine AM labs PE/DVT prophylaxis: SCDs Hold home Triptian Auto-injector Code status: Full code; PCP: Dr. Anthony Overall Earnest did very well. He came in with an acute mild pancreatitis. His lipase continued to trend downward and his pain improved. He was placed on NPO on admission and slowly advanced. He tolerated a full diet today for lunch with no pain. There was some confusion yesterday night with concern over sepsis and he ultimately as given vancomycin and rocephin. While on the vancomycin he began to have some itching and irritation. Vancomycin was slowed down, dexamethasone and benadryl were given overnight for this. This was discontinued the next day as his lactic acid was 0.6 that night and his vital signs continued to look good. Blood cultures were obtained and are pending. Labs today look good. Vital signs are stable. He did have a headache on admission and received fioricet with great response. Discussed diet and pushing fluids at discharge. Our stallion manager did speak with them and gave them some good handouts. His lipid panel was good. Liver enzymes were elevated on admission and have mostly returned to normal limits. Gallbladder ultrasound was obtained and showed no abnormality. He was instructed to follow-up with a PCP within 7-[address] Anthony is reportedly on leave and he can see anyone in the clinic he likes. He will be discharged home today. - Patient Instructions Diet, Other: Non-fatty, non-greasy, avoid mike Activity: As Tolerated Driving: Do Not Drive (today ) Showering/Bathing: May Shower Notify Provider of: Fever, Increased Pain, Nausea and/or Vomiting - Discharge Plan *PRESCRIPTION DRUG MONITORING PROGRAM REVIEWED*: Not Applicable *COPY OF PRESCRIPTION DRUG MONITORING REPORT IN PATIENT BRITNEY: Not Applicable Home Medications: Home Meds . [No Known Home Meds] 12/20/17 [History] Patient Handouts: Acute Pancreatitis, [id number], General Headache Without Cause, [id number] - Discharge Summary/Plan Comment DC Time >30 min.: Yes (40 mins ) - General Info Date of Service: 12/22/17 Admission Dx/Problem (Free Text: Admission Diagnosis/Problem Admission Diagnosis/Problem Pancreatitis Subjective Update: In to see Earnest for the second time today. He is sleeping when I come in however he does wake up. He at a full meal for lunch without problems. No pain. His fiance is at bedside. Salesperson [employer] was in the room earlier and provided good information for them. Advised to avoid dairy, greasy, and fatty food. Discussed follow-up and what to do should symptoms worsen. He will be discharged this afternoon. Functional Status: Reports: Pain Controlled, Tolerating Diet, Ambulating, Urinating. Denies: New Symptoms - Review of Systems General: Reports: No Symptoms. Denies: Fever, Weakness, Fatigue, Malaise HEENT: Reports: No Symptoms. Denies: Eye Pain, Sore Throat Pulmonary: Reports: No Symptoms. Denies: Shortness of Breath, Cough, Sputum, Wheezing Cardiovascular: Reports: No Symptoms. Denies: Chest Pain, Dyspnea on Exertion, Edema Gastrointestinal: Reports: No Symptoms. Denies: Abdominal Pain, Constipation, Diarrhea, Nausea, Vomiting Genitourinary: Reports: No Symptoms Musculoskeletal: Reports: No Symptoms Skin: Reports: No Symptoms Neurological: Reports: No Symptoms. Denies: Confusion, Headache, Numbness, Tingling, Weakness Psychiatric: Reports: No Symptoms - Patient Data Vitals - Most Recent: Last Vital Signs Temp 98.2 F 12/22/17 11:30 Pulse 88 12/22/17 11:24 Resp 16 12/22/17 11:24 BP 118/70 12/22/17 11:24 Pulse Ox 97 12/22/17 11:24 Weight - Most Recent: 228 lb 8 oz I&O - Last 24 hours: Intake & Output 12/21/17 12/22/17 12/22/17 22:59 06:59 14:59 Intake Total 3268 3729 240 Output Total 1400 2150 Balance 1868 1579 240 Lab Results - Last 24 hrs: Laboratory Results - last 24 hr 12/21/17 12/21/17 12/22/17 Range/Units 16:30 22:15 05:35 WBC 12.90 H (4.23-9.07) K/mm3 RBC 4.85 (4.63-6.08) M/mm3 Hgb 13.7 (13.7-17.5) gm/L Hct 40.7 (40.1-51.0) % MCV 83.9 (79.0-92.2) fl MCH 28.2 (25.7-32.2) pg MCHC 33.7 (32.2-35.5) g/dl RDW Std Deviation 38.2 (35.1-43.9) fL Plt Count 219 (163-337) K/mm3 MPV 10.9 (9.4-12.3) fl Neut % (Auto) 71.8 H (34.0-67.9) % Lymph % (Auto) 20.2 L (21.8-53.1) % Rawlins % (Auto) 6.4 (5.3-12.2) % Eos % (Auto) 0.4 L (0.8-7.0) Baso % (Auto) 0.6 (0.1-1.2) % Neut # (Auto) 9.25 H (1.78-5.38) K/mm3 Lymph # (Auto) 2.61 (1.32-3.57) K/mm3 Rawlins # (Auto) 0.83 H (0.30-0.82) K/mm3 Eos # (Auto) 0.05 (0.04-0.54) K/mm3 Baso # (Auto) 0.08 (0.01-0.08) K/mm3 Manual Slide Review Abnormal smear Sodium 136 (136-145) mEq/L Potassium 3.8 (3.5-5.1) mEq/L Chloride 103 (98-107) mEq/L Carbon Dioxide 23 (21-32) mEq/L Anion Gap 13.8 (5-15) BUN 10 (7-18) mg/dL Creatinine 1.0 (0.7-1.3) mg/dL Est Cr Clr Drug Dosing 132.43 mL/min Estimated GFR (MDRD) > 60 (>60) mL/min BUN/Creatinine Ratio 10.0 L (14-18) Glucose 82 (74-106) mg/dL Lactic Acid 0.6 (0.4-2.0) mmol/L Calcium 8.4 L (8.5-10.1) mg/dL Magnesium (1.8-2.4) mg/dl Total Bilirubin (0.2-1.0) mg/dL AST (15-37) U/L ALT (16-63) U/L Alkaline Phosphatase (46-116) U/L C-Reactive Protein (<1.0) mg/dL Total Protein (6.4-8.2) g/dl Albumin (3.4-5.0) g/dl Globulin gm/dL Albumin/Globulin Ratio (1-2) Lipase 854 H (73-393) U/L 12/22/17 Range/Units 05:35 WBC (4.23-9.07) K/mm3 RBC (4.63-6.08) M/mm3 Hgb (13.7-17.5) gm/L Hct (40.1-51.0) % MCV (79.0-92.2) fl MCH (25.7-32.2) pg MCHC (32.2-35.5) g/dl RDW Std Deviation (35.1-43.9) fL Plt Count (163-337) K/mm3 MPV (9.4-12.3) fl Neut % (Auto) (34.0-67.9) % Lymph % (Auto) (21.8-53.1) % Raw[place] % (Auto) (5.3-12.2) % Eos % (Auto) (0.8-7.0) Baso % (Auto) (0.1-1.2) % Neut # (Auto) (1.78-5.38) K/mm3 Lymph # (Auto) (1.32-3.57) K/mm3 Raw[place] # (Auto) (0.30-0.82) K/mm3 Eos # (Auto) (0.04-0.54) K/mm3 Baso # (Auto) (0.01-0.08) K/mm3 Manual Slide Review Sodium 138 (136-145) mEq/L Potassium 4.2 (3.5-5.1) mEq/L Chloride 106 (98-107) mEq/L Carbon Dioxide 22 (21-32) mEq/L Anion Gap 14.2 (5-15) BUN 9 (7-18) mg/dL Creatinine 0.9 (0.7-1.3) mg/dL Est Cr Clr Drug Dosing 147.15 mL/min Estimated GFR (MDRD) > 60 (>60) mL/min BUN/Creatinine Ratio 10.0 L (14-18) Glucose 95 (74-106) mg/dL Lactic Acid (0.4-2.0) mmol/L Calcium 8.4 L (8.5-10.1) mg/dL Magnesium 1.8 (1.8-2.4) mg/dl Total Bilirubin 0.6 (0.2-1.0) mg/dL AST 30 (15-37) U/L ALT 81 H (16-63) U/L Alkaline Phosphatase 51 (46-116) U/L C-Reactive Protein 21.1 H* (<1.0) mg/dL Total Protein 7.0 (6.4-8.2) g/dl Albumin 3.3 L (3.4-5.0) g/dl Globulin 3.7 gm/dL Albumin/Globulin Ratio 0.9 L (1-2) Lipase 551 H (73-393) U/L Med Orders - Current: Current Medications Acetaminophen (Tylenol) 650 mg PO Q4H PRN PRN Reason: Pain (Mild 1-3)/fever Last Admin: 12/21/17 23:54 Dose: 650 mg Acetaminophen/Butalbital/Caffeine (Fioricet 325-50-40 Mg) 1 tab PO Q4H PRN PRN Reason: Headache Last Admin: 12/21/17 08:10 Dose: 1 tab Hydrocodone Bitart/Acetaminophen (Gilbert 325-5 Mg) 1 tab PO Q4H PRN PRN Reason: Pain (moderate 4-6) Last Admin: 12/21/17 21:05 Dose: 1 tab Albuterol/Ipratropium (Duoneb 3.0-0.5 Mg/3 Ml) 3 ml NEB Q4H PRN PRN Reason: Shortness Of Breath/wheezing Bisacodyl (Dulcolax) 5 mg PO DAILY PRN PRN Reason: Constipation Docusate Sodium (Colace) 100 mg PO BID PRN PRN Reason: Constipation Hydralazine HCl (Apresoline) 20 mg IVPUSH Q4H PRN PRN Reason: Hypertension Hydromorphone HCl (Dilaudid) 1 mg IVPUSH Q4H PRN PRN Reason: Pain Promethazine HCl 12.5 mg/ (Sodium Chloride) 50.5 mls @ 100 mls/hr IV Q6H PRN PRN Reason: Nausea/Vomiting Lorazepam (Ativan) 2 mg IVPUSH Q4H PRN PRN Reason: Seizures Magnesium Sulfate (Pharmacy To Dose - Magnesium Replacement) 0 dose .XX ASDIRECTED PRN PRN Reason: RX TO WATCH MAG LEVELS Metoprolol Tartrate (Lopressor) 5 mg IVPUSH Q4H PRN PRN Reason: Tachycardia Miscellaneous Information (Remove Patch) 0 ea TRDERM Q72H MELISSA Ondansetron HCl (Zofran) 4 mg IVPUSH Q8H PRN PRN Reason: Nausea Last Admin: 12/21/17 08:11 Dose: 4 mg Ondansetron HCl (Zofran) 4 mg IV Q6H PRN PRN Reason: Nausea/Vomiting Polyethylene Glycol (Miralax) 17 gm PO DAILY PRN PRN Reason: Constipation Potassium Chloride (Pharmacy To Dose - Potassium Replacement) 0 dose .XX ASDIRECTED PRN PRN Reason: RX TO WATCH K LEVELS Scopolamine (Transderm-Scop) 1.5 mg TRDERM Q72H PRN PRN Reason: Nausea Last Admin: 12/21/17 14:16 Dose: 1.5 mg Senna/Docusate Sodium (Senna Plus) 1 tab PO BID PRN PRN Reason: Constipation Temazepam (Restoril) 15 mg PO BEDTIME PRN PRN Reason: Sleep Discontinued Medications Ceftriaxone Sodium (Rocephin) 2 gm IM ONETIME ONE Stop: 12/21/17 22:27 Last Admin: 12/21/17 23:41 Dose: 2 gm Dexamethasone (Dexamethasone) 4 mg IVPUSH ONETIME ONE Stop: 12/22/17 01:47 Last Admin: 12/22/17 01:55 Dose: 4 mg Diphenhydramine HCl (Benadryl) 25 mg IVPUSH ONETIME ONE Stop: 12/22/17 01:47 Last Admin: 12/22/17 01:59 Dose: 25 mg Hydromorphone HCl (Dilaudid) 1 mg IVPUSH ONETIME STA Stop: 12/20/17 23:44 Last Admin: 12/20/17 23:54 Dose: 1 mg Hydromorphone HCl (Dilaudid) 1 mg IVPUSH Q2H PRN PRN Reason: Pain Last Admin: 12/21/17 05:58 Dose: 1 mg Sodium Chloride (Normal Saline) 1,000 mls @ 150 mls/hr IV ASDIRECTED [facility] Last Admin: 12/20/17 23:52 Dose: 150 mls/hr Sodium Chloride (Normal Saline) 1,000 mls @ 250 mls/hr IV ASDIRECTED [facility] Last Admin: 12/21/17 07:20 Dose: 150 mls/hr Sodium Chloride (Normal Saline) 1,000 mls @ 150 mls/hr IV ASDIRECTED [facility] Last Admin: 12/21/17 07:20 Dose: 150 mls/hr Sodium Chloride (Normal Saline) 1,000 mls @ 250 mls/hr IV ASDIRECTED [facility] Last Admin: 12/22/17 06:25 Dose: 250 mls/hr Vancomycin HCl 1 gm/Vancomycin HCl 500 mg/ Sodium Chloride 500 mls @ 333.025 mls/hr IV Q8H [facility] Last Admin: 12/22/17 06:31 Dose: 333.025 mls/hr Ceftriaxone Sodium 2 gm/ (Sodium Chloride) 100 mls @ 100 mls/hr IV Q24H [facility] Ondansetron HCl (Zofran) 4 mg IVPUSH ONETIME ONE Stop: 12/20/17 23:42 Last Admin: 12/20/17 23:52 Dose: 4 mg Vancomycin HCl (Pharmacy To Dose - Vancomycin) 0 dose .XX ASDIRECTED PRN PRN Reason: RX TO DOSE VANCOMYCIN - Exam Quality Assessment: Reports: DVT Prophylaxis. Denies: Supplemental Oxygen General: Reports: Alert, Oriented, Cooperative, No Acute Distress HEENT: Reports: Pupils Equal, Pupils Reactive, EOMI, Mucous Membr. Moist/Herreid Neck: Reports: Supple, Trachea Midline, No JVD Lungs: Reports: Clear to Auscultation, Normal Respiratory Effort Cardiovascular: Reports: Regular Rate, Regular Rhythm GI/Abdominal Exam: Normal Bowel Sounds, Soft, Non-Tender, No Organomegaly, No Distention, No Abnormal Bruit, No Mass, Pelvis Stable (Male) Exam: Deferred Rectal (Males) Exam: Deferred Back Exam: Reports: Normal Inspection, Full Range of Motion Extremities: Normal Inspection, Normal Range of Motion, Non-Tender, No Pedal Edema, Normal Capillary Refill Skin: Reports: Warm, Dry, Intact Neurological: Reports: No New Focal Deficit Psy/Mental Status: Reports: Alert, Normal Affect, Normal Mood
[2017-12-22] MEDS ORDERED: cefTRIAXone 2 GM in Sodium Chloride 0.9% 100 ML IV SCH (21:00)
[2017-12-22] MEDS ORDERED: cefTRIAXone 2 GM Vial IVPUSH SCH (22:15)
== END 2017-12-22 14:44 | disposition home or self-care (01) | DRG 440 ==
LOC: JD.ED 23:07 → JD.MS 12-21 03:20
PROVIDERS: ADMIT Internal Medicine; ATTEND Internal Medicine
DX: K85.90 Acute pancreatitis without necrosis or infection, unspecified (principal); G44.209 Tension-type headache, unspecified, not intractable; R74.0 Nonspecific elevation of levels of transaminase and lactic acid dehydrogenase [LDH]; L29.9 Pruritus, unspecified; T36.8X5A Adverse effect of other systemic antibiotics, initial encounter; Z87.891 Personal history of nicotine dependence; Z86.69 Personal history of other diseases of the nervous system and sense organs
CPT/HCPCS: 36415; 74177; 74177-26; 76705; 76705-26; 80048; 80053; 80061; 81001; 83605; 83615; 83690; 83735; 85007; 85025; 85027; 86140; 87040; 96361; 96374; 96375; 99285-25; A9270; A9270-GY; J0696; J1100; J1170; J1200; J2405; J3370; J7040

== ENCOUNTER 2017-12-23 15:40 | Observation (INO) | payer OTHER, BC ==
[2017-12-23] MEDS ORDERED: Sodium Chloride 0.9% 10 ML Syringe FLUSH PRN (16:25)
[2017-12-23] MEDS ORDERED: Ondansetron 4 MG/2 ML SDV IVPUSH ONE (16:39)
[2017-12-23] MEDS ORDERED: HYDROmorphone 0.5 MG/0.5 ML SYRINGE IVPUSH ONE (16:39)
[2017-12-23] MEDS ORDERED: Sodium Chloride 0.9% 1,000 ML IV SCH (16:45)
--- NOTE | 2017-12-23 17:30 | EDM.PDOC ---
ED HPI GENERAL MEDICAL PROBLEM - General Chief Complaint: Abdominal Pain Stated Complaint: ABDOMINAL PAIN Time Seen by Provider: 12/23/17 15:58 Source of Information: Reports: Patient, RN Notes Reviewed - History of Present Illness INITIAL COMMENTS - FREE TEXT/NARRATIVE: 22 year old male with abd pain, nausea, dry heaves. He first became ill about 5 days ago. He was admitted to the Hospital 2 days ago, diagnosed with pancreatitis. Discharged home yesterday feeling somewhat better. Started having more pain last evening, worse today with more severe nausea this afternoon, dry heaves. No obvious fever. Etiology of pancreatitis unclear. No hx of GB problems. Rare use of alcohol socially and than not much. Middle Abdomen Pain Score (Numeric/FACES): 7 - Related Data Allergies Allergy/AdvReac Type Severity Reaction Status Date / Time No Known Allergies Allergy Verified 12/21/17 05:52 Home Meds: Home Meds . [No Known Home Meds] 12/20/17 [History] Past Medical History - Past Health History Medical/Surgical History: Denies Medical/Surgical History Genitourinary History: Reports: Pyelonephritis - Past Surgical History Head Surgeries/Procedures: Reports: None HEENT Surgical History: Reports: Myringotomy w Tube(s) Male Surgical History: Reports: None Social & Family History - Family History Family Medical History: Noncontributory - Tobacco Use Smoking Status *Q: Former Smoker Used Tobacco, but Quit: Yes Month/Year Tobacco Last Used: 4 - Caffeine Use Caffeine Use: Reports: Coffee - Recreational Drug Use Recreational Drug Use: No - Living Situation & Occupation Living situation: Reports: Single, with Significant Other (Fiance) Occupation: Employed ([employer]) ED ROS GENERAL - Review of Systems Review Of Systems: See Below Constitutional: Denies: Fever, Chills, Diaphoresis HEENT: Reports: No Symptoms Respiratory: Denies: Shortness of Breath Cardiovascular: Denies: Chest Pain GI/Abdominal: Reports: Abdominal Pain, Nausea, Vomiting Musculoskeletal: Reports: Back Pain Skin: Reports: No Symptoms Neurological: Reports: No Symptoms ED EXAM, GI/ABD - Physical Exam Exam: See Below General Appearance: Alert, Moderate Distress Eyes: Bilateral: Normal Appearance Throat/Mouth: Normal Inspection, Normal Oropharynx Head: Atraumatic Neck: Supple Respiratory/Chest: No Respiratory Distress, Lungs Clear, Normal Breath Sounds Cardiovascular: Regular Rate, Rhythm GI/Abdominal Exam: Tender (very tender upper mid abd, lower abd mild tenderness) . No: Guarding, Rebound Back Exam: No: CVA Tenderness (L), CVA Tenderness (R) Extremities: Normal Inspection, Normal Range of Motion Neurological: Alert, Oriented, No Motor/Sensory Deficits Skin Exam: Warm, Dry, Normal Color Course - Vital Signs Last Recorded V/S: Last Vital Signs Temp 98.6 F 12/23/17 15:44 Pulse 96 12/23/17 15:44 Resp 18 12/23/17 15:44 BP 129/100 H 12/23/17 15:44 Pulse Ox 100 12/23/17 15:44 - Orders/Labs/Meds Orders: Active Orders 24 hr Category Date Time Status Peripheral IV Care [RC] . DIRECTED Care 12/23/17 16:25 Active DRUG SCREEN, URINE [URCHEM] Stat Lab 12/23/17 18:54 Ordered ETHANOL BLOOD MEDICAL [CHEM] Stat Lab 12/23/17 18:54 Ordered Sodium Chloride 0.9% [Normal Saline] 1,000 ml Med 12/23/17 16:45 Active IV ONETIME Sodium Chloride 0.9% [Saline Flush] Med 12/23/17 16:25 Active 10 ml FLUSH ASDIRECTED PRN Peripheral IV Insertion Adult [OM.PC] Stat Oth 12/23/17 16:25 Ordered Medication Orders Sodium Chloride (Normal Saline) 1,000 mls @ 999 mls/hr IV ONETIME [facility] Last Admin: 12/23/17 16:50 Dose: 999 mls/hr Sodium Chloride (Saline Flush) 10 ml FLUSH ASDIRECTED PRN PRN Reason: Keep Vein Open Last Admin: 12/23/17 16:37 Dose: 10 ml Labs: Laboratory Tests 12/23/17 12/23/17 Range/Units 16:05 16:05 WBC 12.96 H (4.23-9.07) K/mm3 RBC 5.13 (4.63-6.08) M/mm3 Hgb 14.5 (13.7-17.5) gm/L Hct 42.5 (40.1-51.0) % MCV 82.8 (79.0-92.2) fl MCH 28.3 (25.7-32.2) pg MCHC 34.1 (32.2-35.5) g/dl RDW Std Deviation 38.7 (35.1-43.9) fL Plt Count 299 (163-337) K/mm3 MPV 10.4 (9.4-12.3) fl Neut % (Auto) 51.0 (34.0-67.9) % Lymph % (Auto) 31.3 (21.8-53.1) % Pershing % (Auto) 12.0 (5.3-12.2) % Eos % (Auto) 4.2 (0.8-7.0) Baso % (Auto) 1.0 (0.1-1.2) % Neut # (Auto) 6.59 H (1.78-5.38) K/mm3 Lymph # (Auto) 4.06 H (1.32-3.57) K/mm3 Pershing # (Auto) 1.56 H (0.30-0.82) K/mm3 Eos # (Auto) 0.55 H (0.04-0.54) K/mm3 Baso # (Auto) 0.13 H (0.01-0.08) K/mm3 Manual Slide Review Abnormal smear Sodium 139 (136-145) mEq/L Potassium 3.3 L (3.5-5.1) mEq/L Chloride 104 (98-107) mEq/L Carbon Dioxide 24 (21-32) mEq/L Anion Gap 14.3 (5-15) BUN 10 (7-18) mg/dL Creatinine 1.0 (0.7-1.3) mg/dL Est Cr Clr Drug Dosing 132.43 mL/min Estimated GFR (MDRD) > 60 (>60) mL/min BUN/Creatinine Ratio 10.0 L (14-18) Glucose 84 (74-106) mg/dL Calcium 9.1 (8.5-10.1) mg/dL Total Bilirubin 0.4 (0.2-1.0) mg/dL AST 25 (15-37) U/L ALT 67 H (16-63) U/L Alkaline Phosphatase 55 (46-116) U/L Total Protein 7.9 (6.4-8.2) g/dl Albumin 3.7 (3.4-5.0) g/dl Globulin 4.2 gm/dL Albumin/Globulin Ratio 0.9 L (1-2) Amylase 92 (25-115) U/L Lipase 521 H (73-393) U/L Meds: Medications Generic Name Dose Route Start Last Admin Trade Name Freq PRN Reason Stop Dose Admin Sodium Chloride 1,000 mls @ 999 mls/hr 12/23/17 16:45 12/23/17 16:50 Normal Saline IV 999 mls/hr ONETIME MELISSA Administration Sodium Chloride 10 ml 12/23/17 16:25 12/23/17 16:37 Saline Flush FLUSH 10 ml ASDIRECTED PRN Administration Keep Vein Open Discontinued Medications Generic Name Dose Route Start Last Admin Trade Name Freq PRN Reason Stop Dose Admin Hydromorphone HCl 1 mg 12/23/17 16:39 12/23/17 16:53 Dilaudid IVPUSH 12/23/17 16:40 1 mg ONETIME ONE Administration Sodium Chloride 500 mls @ 999 mls/hr 12/23/17 17:48 12/23/17 18:02 Normal Saline IV 12/23/17 18:18 999 mls/hr .BOLUS ONE Administration Ondansetron HCl 4 mg 12/23/17 16:39 12/23/17 16:51 Zofran IVPUSH 12/23/17 16:40 4 mg ONETIME ONE Administration - Re-Assessments/Exams Free Text/Narrative Re-Assessment/Exam: 12/23/17 19:00 lipase 521 today, down from about double that 2 days ago. WBC 12,900. However he had onset of pain already last evening not too long after discharge, had a difficult night, nausea, dry heaves today. Will benefit to come back in for further IV fluid, nausea, pain medication as needed for further recovery prior to discharge. Departure - Departure Time of Disposition: 18:47 Disposition: Refer to Observation Condition: Fair Clinical Impression: Pancreatitis Qualifiers: Chronicity: acute Pancreatitis type: unspecified pancreatitis type Acute pancreatitis complication: unspecified Qualified Code(s): K85.90 - Acute pancreatitis without necrosis or infection, unspecified - Discharge Information Referrals: Cesar Anthony [Primary Care Provider] - Forms: ED Department Discharge ED Communication - Discussed Case With (1) Discussed Case With (1): Admitting Provider (Dr Orozco, decision to admit at about 18:45.) - My Orders Last 24 Hours: My Active Orders 12/23/17 16:25 Peripheral IV Care [RC] . DIRECTED Sodium Chloride 0.9% [Saline Flush] 10 ml FLUSH ASDIRECTED PRN Peripheral IV Insertion Adult [OM.PC] Stat 12/23/17 16:45 Sodium Chloride 0.9% [Normal Saline] 1,000 ml IV ONETIME 12/23/17 18:54 DRUG SCREEN, URINE [URCHEM] Stat ETHANOL BLOOD MEDICAL [CHEM] Stat - Assessment/Plan Last 24 Hours: My Active Orders 12/23/17 16:25 Peripheral IV Care [RC] . DIRECTED Sodium Chloride 0.9% [Saline Flush] 10 ml FLUSH ASDIRECTED PRN Peripheral IV Insertion Adult [OM.PC] Stat 12/23/17 16:45 Sodium Chloride 0.9% [Normal Saline] 1,000 ml IV ONETIME 12/23/17 18:54 DRUG SCREEN, URINE [URCHEM] Stat ETHANOL BLOOD MEDICAL [CHEM] Stat
[2017-12-23] MEDS ORDERED: Sodium Chloride 0.9% 500 ML IV ONE (17:48)
[2017-12-23] MEDS ORDERED: Temazepam 15 MG Cap PO PRN (19:59)
[2017-12-23] MEDS ORDERED: Acetaminophen 325 MG Tab PO PRN (19:59)
[2017-12-23] MEDS ORDERED: HYDROmorphone 0.5 MG/0.5 ML SYRINGE IVPUSH PRN (19:59)
[2017-12-23] MEDS ORDERED: Ondansetron 4 MG Tab.DIS PO PRN (19:59)
[2017-12-23] MEDS ORDERED: Ondansetron 4 MG/2 ML SDV IV PRN (19:59)
[2017-12-23] MEDS ORDERED: Scopolamine 1.5 MG Transdermal Patch TRDERM PRN (20:11)
[2017-12-23] MEDS ORDERED: Acetaminophen/Butalbital/Caffeine 325-50-40 MG Tab PO PRN (20:13)
--- NOTE | 2017-12-23 20:20 | PCM.HP ---
H&P History of Present Illness - General Date of Service: 12/23/17 Admit Problem/Dx: Pancreatitis Source of Information: Patient, Old Records, Provider History Limitations: Reports: No Limitations - History of Present Illness Initial Comments - Free Text/Narative: This is a 22yo male with past medical history of migraines who comes in after just being discharged from our hospital yesterday s/p treatment of pancreatitis. He felt better at discharge, but started having more pain last evening, which then worsened today with more severe nausea this afternoon and dry heaves. He denies fever, diarrhea or vomiting. Denies ETOH use. His symptoms slightly improved after receiving IVF, pain medication, and antiemetics in the ED. His initial workup in the ED showed a CBC remarkable for WBC 12.96. His chemistry is remarkable for Potassium 3.3, ALT 67, Lipase 521. Toxicology is positive for Barbiturates. EtOH 0.0. He subsequently admitted to the medical floor for observation. He is a full code. His PCP is Dr. Anthony here at [facility]. Middle Abdomen Pain Score (Numeric/FACES): 7 - Related Data Allergies/Adverse Reactions: Allergies Allergy/AdvReac Type Severity Reaction Status Date / Time No Known Allergies Allergy Verified 12/21/17 05:52 Home Medications: Home Meds . [No Known Home Meds] 12/20/17 [History] Past Medical History - Past Health History Medical/Surgical History: Denies Medical/Surgical History Genitourinary History: Reports: Pyelonephritis - Past Surgical History Head Surgeries/Procedures: Reports: None HEENT Surgical History: Reports: Myringotomy w Tube(s) Male Surgical History: Reports: None Social & Family History - Family History Family Medical History: Noncontributory - Tobacco Use Smoking Status *Q: Former Smoker Used Tobacco, but Quit: Yes Month/Year Tobacco Last Used: 4 - Caffeine Use Caffeine Use: Reports: Coffee - Recreational Drug Use Recreational Drug Use: No - Living Situation & Occupation Living situation: Reports: Single, with Significant Other (Fiance) Occupation: Employed ([employer]) H&P Review of Systems - Review of Systems: Review Of Systems: See Below General: Denies: Fever, Chills HEENT: Reports: No Symptoms Pulmonary: Reports: No Symptoms. Denies: Shortness of Breath Cardiovascular: Reports: No Symptoms. Denies: Chest Pain Gastrointestinal: Reports: Abdominal Pain, Nausea. Denies: Vomiting Genitourinary: Reports: No Symptoms Musculoskeletal: Reports: Back Pain Skin: Reports: No Symptoms Psychiatric: Reports: No Symptoms Neurological: Reports: No Symptoms Hematologic/Lymphatic: Reports: No Symptoms Immunologic: Reports: No Symptoms Exam - Exam Exam: See Below - Vital Signs Vital Signs: Last Vital Signs Temp 98.6 F 12/23/17 15:44 Pulse 96 12/23/17 15:44 Resp 18 12/23/17 15:44 BP 129/100 H 12/23/17 15:44 Pulse Ox 100 12/23/17 15:44 Weight: 223 lb - Exam Quality Assessment: DVT Prophylaxis General: Alert, Oriented, Cooperative HEENT: PERRLA, Hearing Intact, Mucosa Moist & [place], Nares Patent, Normal Nasal Septum, Posterior Pharynx Clear, Conjunctiva Clear, EOMI, EACs Clear, TMs Clear Neck: Supple, Trachea Midline, 2 Lungs: Clear to Auscultation, Normal Respiratory Effort Cardiovascular: Regular Rate, Regular Rhythm GI/Abdominal Exam: Normal Bowel Sounds, Soft, No Distention, No Abnormal Bruit, No Mass, Pelvis Stable, Tender (TTP). No: Distended, Rebound (Male) Exam: Deferred Rectal (Males) Exam: Deferred Back Exam: Normal Inspection, Full Range of Motion. No: CVA Tenderness (L) Extremities: Normal Inspection, Normal Range of Motion, Non-Tender, No Pedal Edema, Normal Capillary Refill Peripheral Pulses: 4+: Posterior Tibial (L), Posterior Tibial (R), Dorsalis Pedis (L), Dorsalis Pedis (R) Skin: Warm, Dry, Intact Neurological: Cranial Nerves Intact (grossly) Neuro Extensive - Mental Status: Alert, Oriented x3, Normal Mood/Affect, Normal Cognition Psychiatric: Alert, Normal Affect, Normal Mood - Patient Data Lab Results Last 24 hrs: Laboratory Results - last 24 hr 12/23/17 12/23/17 12/23/17 Range/Units 16:05 16:05 16:05 WBC 12.96 H (4.23-9.07) K/mm3 RBC 5.13 (4.63-6.08) M/mm3 Hgb 14.5 (13.7-17.5) gm/L Hct 42.5 (40.1-51.0) % MCV 82.8 (79.0-92.2) fl MCH 28.3 (25.7-32.2) pg MCHC 34.1 (32.2-35.5) g/dl RDW Std Deviation 38.7 (35.1-43.9) fL Plt Count 299 (163-337) K/mm3 MPV 10.4 (9.4-12.3) fl Neut % (Auto) 51.0 (34.0-67.9) % Lymph % (Auto) 31.3 (21.8-53.1) % [place] % (Auto) 12.0 (5.3-12.2) % Eos % (Auto) 4.2 (0.8-7.0) Baso % (Auto) 1.0 (0.1-1.2) % Neut # (Auto) 6.59 H (1.78-5.38) K/mm3 Lymph # (Auto) 4.06 H (1.32-3.57) K/mm3 [place] # (Auto) 1.56 H (0.30-0.82) K/mm3 Eos # (Auto) 0.55 H (0.04-0.54) K/mm3 Baso # (Auto) 0.13 H (0.01-0.08) K/mm3 Manual Slide Review Abnormal smear Sodium 139 (136-145) mEq/L Potassium 3.3 L (3.5-5.1) mEq/L Chloride 104 (98-107) mEq/L Carbon Dioxide 24 (21-32) mEq/L Anion Gap 14.3 (5-15) BUN 10 (7-18) mg/dL Creatinine 1.0 (0.7-1.3) mg/dL Est Cr Clr Drug Dosing 132.43 mL/min Estimated GFR (MDRD) > 60 (>60) mL/min BUN/Creatinine Ratio 10.0 L (14-18) Glucose 84 (74-106) mg/dL Calcium 9.1 (8.5-10.1) mg/dL Total Bilirubin 0.4 (0.2-1.0) mg/dL AST 25 (15-37) U/L ALT 67 H (16-63) U/L Alkaline Phosphatase 55 (46-116) U/L Total Protein 7.9 (6.4-8.2) g/dl Albumin 3.7 (3.4-5.0) g/dl Globulin 4.2 gm/dL Albumin/Globulin Ratio 0.9 L (1-2) Amylase 92 (25-115) U/L Lipase 521 H (73-393) U/L Urine Opiates Screen (NEGATIVE) Ur Buprenorphine Scrn (NEGATIVE) Ur Oxycodone Screen (NEGATIVE) Urine Methadone Screen (NEGATIVE) Ur Propoxyphene Screen (NEGATIVE) Ur Barbiturates Screen (NEGATIVE) Ur Tricyclics Screen (NEGATIVE) Ur Phencyclidine Scrn (NEGATIVE) Ur Amphetamine Screen (NEGATIVE) U Methamphetamines Scrn (NEGATIVE) U Benzodiazepines Scrn (NEGATIVE) U Cocaine Metab Screen (NEGATIVE) U Marijuana (THC) Screen (NEGATIVE) Ethyl Alcohol 0.00 (0.00) gm% 12/23/17 Range/Units 19:05 WBC (4.23-9.07) K/mm3 RBC (4.63-6.08) M/mm3 Hgb (13.7-17.5) gm/L Hct (40.1-51.0) % MCV (79.0-92.2) fl MCH (25.7-32.2) pg MCHC (32.2-35.5) g/dl RDW Std Deviation (35.1-43.9) fL Plt Count (163-337) K/mm3 MPV (9.4-12.3) fl Neut % (Auto) (34.0-67.9) % Lymph % (Auto) (21.8-53.1) % [place] % (Auto) (5.3-12.2) % Eos % (Auto) (0.8-7.0) Baso % (Auto) (0.1-1.2) % Neut # (Auto) (1.78-5.38) K/mm3 Lymph # (Auto) (1.32-3.57) K/mm3 [place] # (Auto) (0.30-0.82) K/mm3 Eos # (Auto) (0.04-0.54) K/mm3 Baso # (Auto) (0.01-0.08) K/mm3 Manual Slide Review Sodium (136-145) mEq/L Potassium (3.5-5.1) mEq/L Chloride (98-107) mEq/L Carbon Dioxide (21-32) mEq/L Anion Gap (5-15) BUN (7-18) mg/dL Creatinine (0.7-1.3) mg/dL Est Cr Clr Drug Dosing mL/min Estimated GFR (MDRD) (>60) mL/min BUN/Creatinine Ratio (14-18) Glucose (74-106) mg/dL Calcium (8.5-10.1) mg/dL Total Bilirubin (0.2-1.0) mg/dL AST (15-37) U/L ALT (16-63) U/L Alkaline Phosphatase (46-116) U/L Total Protein (6.4-8.2) g/dl Albumin (3.4-5.0) g/dl Globulin gm/dL Albumin/Globulin Ratio (1-2) Amylase (25-115) U/L Lipase (73-393) U/L Urine Opiates Screen Negative (NEGATIVE) Ur Buprenorphine Scrn Negative (NEGATIVE) Ur Oxycodone Screen Negative (NEGATIVE) Urine Methadone Screen Negative (NEGATIVE) Ur Propoxyphene Screen Negative (NEGATIVE) Ur Barbiturates Screen Presumptive positive H (NEGATIVE) Ur Tricyclics Screen Negative (NEGATIVE) Ur Phencyclidine Scrn Negative (NEGATIVE) Ur Amphetamine Screen Negative (NEGATIVE) U Methamphetamines Scrn Negative (NEGATIVE) U Benzodiazepines Scrn Negative (NEGATIVE) U Cocaine Metab Screen Negative (NEGATIVE) U Marijuana (THC) Screen Negative (NEGATIVE) Ethyl Alcohol (0.00) gm% Result Diagrams: 12/23/17 16:05 12/23/17 16:05 - Problem List (1) Pancreatitis SNOMED Code(s): 80131396 ICD Code: K85.90 - ACUTE PANCREATITIS WITHOUT NECROSIS OR INFECTION, UNSP Status: Acute Priority: High Current Visit: Yes Qualifiers: Chronicity: acute Pancreatitis type: unspecified pancreatitis type Acute pancreatitis complication: unspecified Qualified Code(s): K85.90 - Acute pancreatitis without necrosis or infection, unspecified (2) Transaminitis SNOMED Code(s): 421099416, 641018234 ICD Code: R74.0 - NONSPEC ELEV OF LEVELS OF TRANSAMNS & LACTIC ACID DEHYDRGNSE Status: Acute Priority: High Current Visit: Yes (3) History of migraine headaches SNOMED Code(s): 875423425 ICD Code: Z86.69 - PERSONAL HISTORY OF DIS OF THE NERVOUS SYS AND SENSE ORGANS Status: Chronic Priority: Medium Current Visit: No Problem List Initiated/Reviewed/Updated: Yes Orders Last 24hrs: Active Orders 24 hr Category Date Time Status Cardiac Monitoring [RC] INTERMITTENT Care 12/23/17 20:00 Ordered Height and Weight [RC] DAILY Care 12/23/17 19:59 Ordered Intake and Output [RC] QSHIFT Care 12/23/17 20:00 Ordered May Shower [RC] ASDIRECTED Care 12/23/17 19:59 Ordered Oxygen Therapy [RC] PRN Care 12/23/17 19:59 Ordered Peripheral IV Care [RC] . DIRECTED Care 12/23/17 16:25 Active Pulse Oximetry [RC] PRN Care 12/23/17 20:00 Ordered Up ad [place] [RC] ASDIRECTED Care 12/23/17 19:59 Ordered VTE/DVT Education [RC] PER UNIT ROUTINE Care 12/23/17 19:59 Ordered Vital Signs [RC] Q4H Care 12/23/17 19:59 Ordered Full Liquid Diet [DIET] Diet 12/24/17 Breakfast Ordered C-REACTIVE PROTEIN [CHEM] AM Lab 12/24/17 05:11 Ordered C-REACTIVE PROTEIN [CHEM] AM Lab 12/25/17 05:11 Ordered C-REACTIVE PROTEIN [CHEM] AM Lab 12/26/17 05:11 Ordered C-REACTIVE PROTEIN [CHEM] AM Lab 12/27/17 05:11 Ordered C-REACTIVE PROTEIN [CHEM] AM Lab 12/28/17 05:11 Ordered CBC WITH AUTO DIFF [HEME] AM Lab 12/24/17 05:11 Ordered CBC WITH AUTO DIFF [HEME] AM Lab 12/25/17 05:11 Ordered CBC WITH AUTO DIFF [HEME] AM Lab 12/26/17 05:11 Ordered CBC WITH AUTO DIFF [HEME] AM Lab 12/27/17 05:11 Ordered CBC WITH AUTO DIFF [HEME] AM Lab 12/28/17 05:11 Ordered COMPREHENSIVE METABOLIC PN,CMP [CHEM] AM Lab 12/24/17 05:11 Ordered COMPREHENSIVE METABOLIC PN,CMP [CHEM] AM Lab 12/25/17 05:11 Ordered COMPREHENSIVE METABOLIC PN,CMP [CHEM] AM Lab 12/26/17 05:11 Ordered COMPREHENSIVE METABOLIC PN,CMP [CHEM] AM Lab 12/27/17 05:11 Ordered COMPREHENSIVE METABOLIC PN,CMP [CHEM] AM Lab 12/28/17 05:11 Ordered DRUG SCREEN, URINE [URCHEM] Stat Lab 12/23/17 19:05 Ordered LIPASE [CHEM] AM Lab 12/24/17 05:11 Ordered LIPASE [CHEM] AM Lab 12/25/17 05:11 Ordered LIPASE [CHEM] AM Lab 12/26/17 05:11 Ordered LIPASE [CHEM] AM Lab 12/27/17 05:11 Ordered LIPASE [CHEM] AM Lab 12/28/17 05:11 Ordered MAGNESIUM [CHEM] Routine Lab 12/23/17 19:59 Ordered Acetaminophen [Tylenol] Med 12/23/17 19:59 Ordered 650 mg PO Q4H PRN Acetaminophen/Butalbital/Caff [Fioricet 325-50-40 MG] Med 12/23/17 20:13 Ordered 1 tab PO Q4H PRN Acetaminophen/HYDROcodone [[place] 325-5 MG] Med 12/23/17 19:59 Ordered 1 tab PO Q4H PRN HYDROmorphone [Dilaudid] Med 12/23/17 19:59 Ordered 1 mg IVPUSH Q4H PRN Ondansetron [Zofran ODT] Med 12/23/17 19:59 Ordered 4 mg PO Q4H PRN Ondansetron [Zofran] Med 12/23/17 19:59 Ordered 4 mg IV Q4H PRN Scopolamine [Transderm-Scop] Med 12/23/17 20:11 Ordered 1.5 mg TRDERM Q72H PRN Sodium Chloride 0.9% [Normal Saline] 1,000 ml Med 12/23/17 16:45 Active IV ONETIME Sodium Chloride 0.9% [Saline Flush] Med 12/23/17 16:25 Active 10 ml FLUSH ASDIRECTED PRN Temazepam [Restoril] Med 12/23/17 19:59 Ordered 15 mg PO BEDTIME PRN Peripheral IV Insertion Adult [OM.PC] Stat Oth 12/23/17 16:25 Ordered Sequential Compression Device [OM.PC] Per Unit Routine Oth 12/23/17 20:00 Ordered Resuscitation Status Routine Resus Stat 12/23/17 19:59 Ordered Medication Orders Acetaminophen (Tylenol) 650 mg PO Q4H PRN PRN Reason: Pain (Mild 1-3)/fever Acetaminophen/Butalbital/Caffeine (Fioricet 325-50-40 Mg) 1 tab PO Q4H PRN PRN Reason: Headache Hydrocodone Bitart/Acetaminophen ([place] 325-5 Mg) 1 tab PO Q4H PRN PRN Reason: Pain (moderate 4-6) Hydromorphone HCl (Dilaudid) 1 mg IVPUSH Q4H PRN PRN Reason: Pain (severe 7-10) Sodium Chloride (Normal Saline) 1,000 mls @ 999 mls/hr IV ONETIME MELISSA Last Admin: 12/23/17 16:50 Dose: 999 mls/hr Ondansetron HCl (Zofran Odt) 4 mg PO Q4H PRN PRN Reason: nausea, able to take PO Ondansetron HCl (Zofran) 4 mg IV Q4H PRN PRN Reason: Nausea/Vomiting Scopolamine (Transderm-Scop) 1.5 mg TRDERM Q72H PRN PRN Reason: Nausea Sodium Chloride (Saline Flush) 10 ml FLUSH ASDIRECTED PRN PRN Reason: Keep Vein Open Last Admin: 12/23/17 16:37 Dose: 10 ml Temazepam (Restoril) 15 mg PO BEDTIME PRN PRN Reason: Sleep Assessment/Plan Comment:: I/P: Acute pancreatitis, improving * Was discharged from hospital yesterday for pancreatitis; c/o abd pain, nausea , dry heaves * Denies any ETOH, no h/o of gallbladder problems * Workup from previous admission (12/21/17): * Lipid panel: triglycerides 120, total cholesterol 119, LDL 65, HDL 33 * Gallbladder US - pancreas within upper limits of normal, no gallstones, no gallbladder wall thickening, no abnormality seen * CT scan: 1. Hepatomegaly, hepatic steatosis 2. Possible mild peripancreatic mesenteric fat stranding. Possible acute pancreatitis. Correlation with serum lipase. 3. No CT findings of acute appendicitis * WBC 12.96 (13.55 on 12/21) * Lipase 521 (1071 on 12/21) * IV fluids as ordered, antiemetics and pain medication PRN * Full liquid diet, advance as tolerated * Drug screen in ED positive for Barbiturates; ETOH 0.0 * CIWAA Q4 x 24hrs Transaminitis, improving * AST 25 * ALT 67 * Alk Phos 55 * Monitor Chronic: Migraine headaches--> Fioricet Q4HR PRN Plan: Admit to observation IVF, Antiemetics, Pain medication PRN Monitor and replenish electrolytes as needed Routine AM labs PE/DVT prophylaxis: SCDs Hold home Triptian Auto-injector Code status: Full code; PCP: Dr. Anthony
[2017-12-23] MEDS: Acetaminophen/HYDROcodone 325-5 MG Tab PO PRN (22:38)
[2017-12-24] MEDS: Acetaminophen/HYDROcodone 325-5 MG Tab PO PRN (16:14)
--- NOTE | 2017-12-24 16:24 | PCM.PN ---
- General Info Date of Service: 12/24/17 Admission Dx/Problem (Free Text): Pancreatitis Subjective Update: In to see Earnest. He is feeling much better today. Nausea has improved and appetite is slowing returning. Still has some abdominal pain, states it briefly went up to 6/10 earlier but pain medication has helped. Will advance to soft diet for dinner. Ambulating. Urinating. No other concerns from nursing. Will likely D/C tomorrow pending clinical disposition. His PCP is still Dr. Anthony who will be gone for 2 months in [place], so for now he is seeing Allie Millan PA-C and has an appointment next week for follow up. Functional Status: Reports: Pain Controlled, Tolerating Diet, Ambulating, Urinating - Review of Systems General: Reports: No Symptoms. Denies: Fever, Chills HEENT: Reports: No Symptoms Pulmonary: Reports: No Symptoms. Denies: Shortness of Breath, Cough Cardiovascular: Reports: No Symptoms. Denies: Chest Pain Gastrointestinal: Reports: Abdominal Pain (improving). Denies: Diarrhea, Nausea , Vomiting Genitourinary: Reports: No Symptoms. Denies: Dysuria, Frequency, Burning, Pain , Urgency Musculoskeletal: Reports: No Symptoms Skin: Reports: No Symptoms Neurological: Reports: No Symptoms Psychiatric: Reports: No Symptoms - Patient Data Vitals - Most Recent: Last Vital Signs Temp 98.2 F 12/24/17 11:53 Pulse 86 12/24/17 11:53 Resp 20 12/24/17 11:53 BP 117/70 12/24/17 11:53 Pulse Ox 95 12/24/17 11:53 Weight - Most Recent: 230 lb 3.2 oz I&O - Last 24 Hours: Intake & Output 12/24/17 12/24/17 12/24/17 06:59 14:59 22:59 Intake Total 60 Balance 60 Lab Results Last 24 Hours: Laboratory Results - last 24 hr 12/23/17 12/23/17 12/23/17 Range/Units 16:05 16:05 16:05 WBC 12.96 H (4.23-9.07) K/mm3 RBC 5.13 (4.63-6.08) M/mm3 Hgb 14.5 (13.7-17.5) gm/L Hct 42.5 (40.1-51.0) % MCV 82.8 (79.0-92.2) fl MCH 28.3 (25.7-32.2) pg MCHC 34.1 (32.2-35.5) g/dl RDW Std Deviation 38.7 (35.1-43.9) fL Plt Count 299 (163-337) K/mm3 MPV 10.4 (9.4-12.3) fl Neut % (Auto) 51.0 (34.0-67.9) % Lymph % (Auto) 31.3 (21.8-53.1) % [place] % (Auto) 12.0 (5.3-12.2) % Eos % (Auto) 4.2 (0.8-7.0) Baso % (Auto) 1.0 (0.1-1.2) % Neut # (Auto) 6.59 H (1.78-5.38) K/mm3 Lymph # (Auto) 4.06 H (1.32-3.57) K/mm3 [place] # (Auto) 1.56 H (0.30-0.82) K/mm3 Eos # (Auto) 0.55 H (0.04-0.54) K/mm3 Baso # (Auto) 0.13 H (0.01-0.08) K/mm3 Manual Slide Review Abnormal smear Sodium 139 (136-145) mEq/L Potassium 3.3 L (3.5-5.1) mEq/L Chloride 104 (98-107) mEq/L Carbon Dioxide 24 (21-32) mEq/L Anion Gap 14.3 (5-15) BUN 10 (7-18) mg/dL Creatinine 1.0 (0.7-1.3) mg/dL Est Cr Clr Drug Dosing 132.43 mL/min Estimated GFR (MDRD) > 60 (>60) mL/min BUN/Creatinine Ratio 10.0 L (14-18) Glucose 84 (74-106) mg/dL Calcium 9.1 (8.5-10.1) mg/dL Magnesium (1.8-2.4) mg/dl Total Bilirubin 0.4 (0.2-1.0) mg/dL AST 25 (15-37) U/L ALT 67 H (16-63) U/L Alkaline Phosphatase 55 (46-116) U/L C-Reactive Protein (<1.0) mg/dL Total Protein 7.9 (6.4-8.2) g/dl Albumin 3.7 (3.4-5.0) g/dl Globulin 4.2 gm/dL Albumin/Globulin Ratio 0.9 L (1-2) Amylase 92 (25-115) U/L Lipase 521 H (73-393) U/L Urine Opiates Screen (NEGATIVE) Ur Buprenorphine Scrn (NEGATIVE) Ur Oxycodone Screen (NEGATIVE) Urine Methadone Screen (NEGATIVE) Ur Propoxyphene Screen (NEGATIVE) Ur Barbiturates Screen (NEGATIVE) Ur Tricyclics Screen (NEGATIVE) Ur Phencyclidine Scrn (NEGATIVE) Ur Amphetamine Screen (NEGATIVE) U Methamphetamines Scrn (NEGATIVE) U Benzodiazepines Scrn (NEGATIVE) U Cocaine Metab Screen (NEGATIVE) U Marijuana (THC) Screen (NEGATIVE) Ethyl Alcohol 0.00 (0.00) gm% 12/23/17 12/23/17 12/24/17 Range/Units 19:05 19:59 05:56 WBC 9.23 H (4.23-9.07) K/mm3 RBC 4.46 L (4.63-6.08) M/mm3 Hgb 12.6 L (13.7-17.5) gm/L Hct 37.7 L (40.1-51.0) % MCV 84.5 (79.0-92.2) fl MCH 28.3 (25.7-32.2) pg MCHC 33.4 (32.2-35.5) g/dl RDW Std Deviation 39.6 (35.1-43.9) fL Plt Count 265 (163-337) K/mm3 MPV 10.3 (9.4-12.3) fl Neut % (Auto) 39.9 (34.0-67.9) % Lymph % (Auto) 37.4 (21.8-53.1) % [place] % (Auto) 13.8 H (5.3-12.2) % Eos % (Auto) 6.4 (0.8-7.0) Baso % (Auto) 1.4 H (0.1-1.2) % Neut # (Auto) 3.69 (1.78-5.38) K/mm3 Lymph # (Auto) 3.45 (1.32-3.57) K/mm3 [place] # (Auto) 1.27 H (0.30-0.82) K/mm3 Eos # (Auto) 0.59 H (0.04-0.54) K/mm3 Baso # (Auto) 0.13 H (0.01-0.08) K/mm3 Manual Slide Review Normal smear Sodium (136-145) mEq/L Potassium (3.5-5.1) mEq/L Chloride (98-107) mEq/L Carbon Dioxide (21-32) mEq/L Anion Gap (5-15) BUN (7-18) mg/dL Creatinine (0.7-1.3) mg/dL Est Cr Clr Drug Dosing mL/min Estimated GFR (MDRD) (>60) mL/min BUN/Creatinine Ratio (14-18) Glucose (74-106) mg/dL Calcium (8.5-10.1) mg/dL Magnesium 1.9 (1.8-2.4) mg/dl Total Bilirubin (0.2-1.0) mg/dL AST (15-37) U/L ALT (16-63) U/L Alkaline Phosphatase (46-116) U/L C-Reactive Protein (<1.0) mg/dL Total Protein (6.4-8.2) g/dl Albumin (3.4-5.0) g/dl Globulin gm/dL Albumin/Globulin Ratio (1-2) Amylase (25-115) U/L Lipase (73-393) U/L Urine Opiates Screen Negative (NEGATIVE) Ur Buprenorphine Scrn Negative (NEGATIVE) Ur Oxycodone Screen Negative (NEGATIVE) Urine Methadone Screen Negative (NEGATIVE) Ur Propoxyphene Screen Negative (NEGATIVE) Ur Barbiturates Screen Presumptive positive H (NEGATIVE) Ur Tricyclics Screen Negative (NEGATIVE) Ur Phencyclidine Scrn Negative (NEGATIVE) Ur Amphetamine Screen Negative (NEGATIVE) U Methamphetamines Scrn Negative (NEGATIVE) U Benzodiazepines Scrn Negative (NEGATIVE) U Cocaine Metab Screen Negative (NEGATIVE) U Marijuana (THC) Screen Negative (NEGATIVE) Ethyl Alcohol (0.00) gm% 12/24/17 Range/Units 05:56 WBC (4.23-9.07) K/mm3 RBC (4.63-6.08) M/mm3 Hgb (13.7-17.5) gm/L Hct (40.1-51.0) % MCV (79.0-92.2) fl MCH (25.7-32.2) pg MCHC (32.2-35.5) g/dl RDW Std Deviation (35.1-43.9) fL Plt Count (163-337) K/mm3 MPV (9.4-12.3) fl Neut % (Auto) (34.0-67.9) % Lymph % (Auto) (21.8-53.1) % [place] % (Auto) (5.3-12.2) % Eos % (Auto) (0.8-7.0) Baso % (Auto) (0.1-1.2) % Neut # (Auto) (1.78-5.38) K/mm3 Lymph # (Auto) (1.32-3.57) K/mm3 [place] # (Auto) (0.30-0.82) K/mm3 Eos # (Auto) (0.04-0.54) K/mm3 Baso # (Auto) (0.01-0.08) K/mm3 Manual Slide Review Sodium 141 (136-145) mEq/L Potassium 3.8 (3.5-5.1) mEq/L Chloride 108 H (98-107) mEq/L Carbon Dioxide 24 (21-32) mEq/L Anion Gap 12.8 (5-15) BUN 9 (7-18) mg/dL Creatinine 0.9 (0.7-1.3) mg/dL Est Cr Clr Drug Dosing 147.15 mL/min Estimated GFR (MDRD) > 60 (>60) mL/min BUN/Creatinine Ratio 10.0 L (14-18) Glucose 77 (74-106) mg/dL Calcium 8.6 (8.5-10.1) mg/dL Magnesium (1.8-2.4) mg/dl Total Bilirubin 0.2 (0.2-1.0) mg/dL AST 18 (15-37) U/L ALT 53 (16-63) U/L Alkaline Phosphatase 46 (46-116) U/L C-Reactive Protein 11.2 H* (<1.0) mg/dL Total Protein 6.3 L (6.4-8.2) g/dl Albumin 3.0 L (3.4-5.0) g/dl Globulin 3.3 gm/dL Albumin/Globulin Ratio 0.9 L (1-2) Amylase (25-115) U/L Lipase 445 H (73-393) U/L Urine Opiates Screen (NEGATIVE) Ur Buprenorphine Scrn (NEGATIVE) Ur Oxycodone Screen (NEGATIVE) Urine Methadone Screen (NEGATIVE) Ur Propoxyphene Screen (NEGATIVE) Ur Barbiturates Screen (NEGATIVE) Ur Tricyclics Screen (NEGATIVE) Ur Phencyclidine Scrn (NEGATIVE) Ur Amphetamine Screen (NEGATIVE) U Methamphetamines Scrn (NEGATIVE) U Benzodiazepines Scrn (NEGATIVE) U Cocaine Metab Screen (NEGATIVE) U Marijuana (THC) Screen (NEGATIVE) Ethyl Alcohol (0.00) gm% Med Orders - Current: Current Medications Acetaminophen (Tylenol) 650 mg PO Q4H PRN PRN Reason: Pain (Mild 1-3)/fever Acetaminophen/Butalbital/Caffeine (Fioricet 325-50-40 Mg) 1 tab PO Q4H PRN PRN Reason: Headache Hydrocodone Bitart/Acetaminophen ([place] 325-5 Mg) 1 tab PO Q4H PRN PRN Reason: Pain (moderate 4-6) Last Admin: 12/24/17 16:14 Dose: 1 tab Hydromorphone HCl (Dilaudid) 1 mg IVPUSH Q4H PRN PRN Reason: Pain (severe 7-10) Sodium Chloride (Normal Saline) 1,000 mls @ 999 mls/hr IV ONETIME MELISSA Last Admin: 12/23/17 16:50 Dose: 999 mls/hr Ondansetron HCl (Zofran Odt) 4 mg PO Q4H PRN PRN Reason: nausea, able to take PO Last Admin: 12/24/17 07:59 Dose: 4 mg Ondansetron HCl (Zofran) 4 mg IV Q4H PRN PRN Reason: Nausea/Vomiting Scopolamine (Transderm-Scop) 1.5 mg TRDERM Q72H PRN PRN Reason: Nausea Sodium Chloride (Saline Flush) 10 ml FLUSH ASDIRECTED PRN PRN Reason: Keep Vein Open Last Admin: 12/23/17 16:37 Dose: 10 ml Temazepam (Restoril) 15 mg PO BEDTIME PRN PRN Reason: Sleep Discontinued Medications Hydromorphone HCl (Dilaudid) 1 mg IVPUSH ONETIME ONE Stop: 12/23/17 16:40 Last Admin: 12/23/17 16:53 Dose: 1 mg Sodium Chloride (Normal Saline) 500 mls @ 999 mls/hr IV .BOLUS ONE Stop: 12/23/17 18:18 Last Admin: 12/23/17 18:02 Dose: 999 mls/hr Ondansetron HCl (Zofran) 4 mg IVPUSH ONETIME ONE Stop: 12/23/17 16:40 Last Admin: 12/23/17 16:51 Dose: 4 mg - Exam Quality Assessment: DVT Prophylaxis. No: Supplemental Oxygen General: Alert, Oriented, Cooperative, No Acute Distress HEENT: Pupils Equal, Pupils Reactive, EOMI, Mucous Membr. Moist/[place] Neck: Supple Lungs: Clear to Auscultation, Normal Respiratory Effort Cardiovascular: Regular Rate, Regular Rhythm GI/Abdominal Exam: Normal Bowel Sounds, Soft, No Organomegaly, No Distention, No Abnormal Bruit, No Mass, Pelvis Stable, Tender (mildly TTP LUQ, improved) (Male) Exam: Deferred Back Exam: Normal Inspection, Full Range of Motion Extremities: Normal Inspection, Normal Range of Motion, Non-Tender, No Pedal Edema, Normal Capillary Refill Peripheral Pulses: 4+: Posterior Tibial (L), Posterior Tibial (R), Dorsalis Pedis (L), Dorsalis Pedis (R) Skin: Warm, Dry, Intact Neurological: No New Focal Deficit Psy/Mental Status: Alert, Normal Affect, Normal Mood - Problem List & Annotations (1) Pancreatitis SNOMED Code(s): 18831567 Code(s): K85.90 - ACUTE PANCREATITIS WITHOUT NECROSIS OR INFECTION, UNSP Status: Acute Priority: High Current Visit: Yes Qualifiers: Chronicity: acute Pancreatitis type: unspecified pancreatitis type Acute pancreatitis complication: unspecified Qualified Code(s): K85.90 - Acute pancreatitis without necrosis or infection, unspecified (2) Transaminitis SNOMED Code(s): 271490405, 392152675 Code(s): R74.0 - NONSPEC ELEV OF LEVELS OF TRANSAMNS & LACTIC ACID DEHYDRGNSE Status: Acute Priority: High Current Visit: Yes (3) History of migraine headaches SNOMED Code(s): 049451788 Code(s): Z86.69 - PERSONAL HISTORY OF DIS OF THE NERVOUS SYS AND SENSE ORGANS Status: Chronic Priority: Medium Current Visit: No - Problem List Review Problem List Initiated/Reviewed/Updated: Yes - My Orders Last 24 Hours: My Active Orders 12/23/17 19:59 Height and Weight [RC] 04 May Shower [RC] ASDIRECTED Oxygen Therapy [RC] PRN Up ad [place] [RC] ASDIRECTED VTE/DVT Education [RC] PER UNIT ROUTINE Vital Signs [RC] Q4HR Acetaminophen [Tylenol] 650 mg PO Q4H PRN Acetaminophen/HYDROcodone [[place] 325-5 MG] 1 tab PO Q4H PRN HYDROmorphone [Dilaudid] 1 mg IVPUSH Q4H PRN Ondansetron [Zofran ODT] 4 mg PO Q4H PRN Ondansetron [Zofran] 4 mg IV Q4H PRN Temazepam [Restoril] 15 mg PO BEDTIME PRN Resuscitation Status Routine 12/23/17 20:00 Intake and Output [RC] 04,16 Pulse Oximetry [RC] PRN Sequential Compression Device [OM.PC] Per Unit Routine 12/23/17 20:11 Scopolamine [Transderm-Scop] 1.5 mg TRDERM Q72H PRN 12/23/17 20:13 Acetaminophen/Butalbital/Caff [Fioricet 325-50-40 MG] 1 tab PO Q4H PRN 12/23/17 20:29 CIWAA Assessment [RC] Q4H 12/24/17 Breakfast Full Liquid Diet [DIET] 12/25/17 05:11 C-REACTIVE PROTEIN [CHEM] AM CBC WITH AUTO DIFF [HEME] AM COMPREHENSIVE METABOLIC PN,CMP [CHEM] AM LIPASE [CHEM] AM 12/26/17 05:11 C-REACTIVE PROTEIN [CHEM] AM CBC WITH AUTO DIFF [HEME] AM COMPREHENSIVE METABOLIC PN,CMP [CHEM] AM LIPASE [CHEM] AM 12/27/17 05:11 C-REACTIVE PROTEIN [CHEM] AM CBC WITH AUTO DIFF [HEME] AM COMPREHENSIVE METABOLIC PN,CMP [CHEM] AM LIPASE [CHEM] AM 12/28/17 05:11 C-REACTIVE PROTEIN [CHEM] AM CBC WITH AUTO DIFF [HEME] AM COMPREHENSIVE METABOLIC PN,CMP [CHEM] AM LIPASE [CHEM] AM - Plan Plan:: I/P: Acute pancreatitis, improving * Was discharged from hospital yesterday for pancreatitis; c/o abd pain, nausea , dry heaves * Denies any ETOH, no h/o of gallbladder problems * Workup from previous admission (12/21/17): * Lipid panel: triglycerides 120, total cholesterol 119, LDL 65, HDL 33 * Gallbladder US - pancreas within upper limits of normal, no gallstones, no gallbladder wall thickening, no abnormality seen * CT scan: 1. Hepatomegaly, hepatic steatosis 2. Possible mild peripancreatic mesenteric fat stranding. Possible acute pancreatitis. Correlation with serum lipase. 3. No CT findings of acute appendicitis * WBC 12.96--> 9.23 * Lipase 521--> 445 * CRP 21.1-->11.2 * IV fluids as ordered, antiemetics and pain medication PRN * Full liquid diet, advance as tolerated * Drug screen in ED positive for Barbiturates; ETOH 0.0 * CIWAA Q4 x 24hrs: Score 1-->0 Resolved: Transaminitis * AST 25-->18 * ALT 67-->53 * Alk Phos 55-->46 * Monitor Chronic: Migraine headaches--> Fioricet Q4HR PRN Plan: Admit to observation IVF, Antiemetics, Pain medication PRN Monitor and replenish electrolytes as needed Full liquid diet, advance as tolerated Routine AM labs PE/DVT prophylaxis: SCDs Hold home Triptian Auto-injector Code status: Full code; PCP: Dr. Anthony/Allie Millan PA-C Most likely D/C tomorrow pending clinical disposition His PCP is still Dr. Anthony who will be gone for 2 months in [place], so for now he is seeing Allie Millan PA-C and has an appointment next week for follow up.
--- NOTE | 2017-12-24 20:07 | PCM.DCSUM1 ---
Discharge Summary - Hospital Course HPI Initial Comments: 22 year old male with abd pain, nausea, dry heaves. He first became ill about 5 days ago. He was admitted to the Hospital 2 days ago, diagnosed with pancreatitis. Discharged home yesterday feeling somewhat better. Started having more pain last evening, worse today with more severe nausea this afternoon, dry heaves. No obvious fever. Etiology of pancreatitis unclear. No hx of GB problems. Rare use of alcohol socially and than not much. Diagnosis: Stroke: No - Discharge Data Discharge Date: 12/25/17 (ADMIT 12/23/17) Discharge Disposition: Home, Self-Care 01 Condition: Good - Discharge Diagnosis/Problem(s) (1) Pancreatitis SNOMED Code(s): 95936570 ICD Code: K85.90 - ACUTE PANCREATITIS WITHOUT NECROSIS OR INFECTION, UNSP Status: Acute Priority: High Qualifiers: Chronicity: acute Pancreatitis type: unspecified pancreatitis type Acute pancreatitis complication: unspecified Qualified Code(s): K85.90 - Acute pancreatitis without necrosis or infection, unspecified (2) Transaminitis SNOMED Code(s): 412426954, 836647206 ICD Code: R74.0 - NONSPEC ELEV OF LEVELS OF TRANSAMNS & LACTIC ACID DEHYDRGNSE Status: Acute Priority: High (3) History of migraine headaches SNOMED Code(s): 325896841 ICD Code: Z86.69 - PERSONAL HISTORY OF DIS OF THE NERVOUS SYS AND SENSE ORGANS Status: Chronic Priority: Medium - Patient Summary/Data Operative Procedure(s) Performed: none Complications: none Labs Pending at D/C: none Recommended Follow-up Testing/Procedures: Follow up with PCP in 7-10 days. Planned Operative Procedure(s) after DC: none Hospital Course: I/P: Acute pancreatitis, improving * Was discharged from hospital yesterday for pancreatitis; c/o abd pain, nausea , dry heaves * Denies any ETOH, no h/o of gallbladder problems * Workup from previous admission (12/21/17): * Lipid panel: triglycerides 120, total cholesterol 119, LDL 65, HDL 33 * Gallbladder US - pancreas within upper limits of normal, no gallstones, no gallbladder wall thickening, no abnormality seen * CT scan: 1. Hepatomegaly, hepatic steatosis 2. Possible mild peripancreatic mesenteric fat stranding. Possible acute pancreatitis. Correlation with serum lipase. 3. No CT findings of acute appendicitis * WBC 12.96--> 9.23--> 6.88 * Lipase 521--> 445--> 318 * CRP 21.1-->11.2--> 7.8 * IV fluids as ordered, antiemetics and pain medication PRN * Full liquid diet, advance as tolerated * Drug screen in ED positive for Barbiturates; ETOH 0.0 * CIWAA Q4 x 24hrs: Score 1-->0 Transaminitis * AST 25-->18--> 49 * ALT 67-->53--> 81 * Alk Phos 55-->46--> 48 * Monitor Chronic: Migraine headaches--> Fioricet Q4HR PRN Plan: Admit to observation IVF, Antiemetics, Pain medication PRN Monitor and replenish electrolytes as needed Full liquid diet, advance as tolerated Routine AM labs PE/DVT prophylaxis: SCDs Hold home Triptian Auto-injector Code status: Full code; PCP: Dr. Anthony/Allie Millan PA-C D/C home today His PCP is still Dr. Anthony who will be gone for 2 months in [place], so for now he is seeing Allie Millan PA-C and has an appointment next week for follow up. Earnest has recovered well after being re-admitted for pancreatitis. He was still experiencing some abdominal pain and nausea so was treated with IV fluids, antiemetics and pain medication as needed. Diet was advanced as tolerated. He will be discharged with Zofran Q4H PRN nausea #7 and Fay Q4H PRN abdominal pain #3 to be alternated with OTC Tylenol for pain relief. He should follow up with his PCP in 7-10 days. AST and ALT were elevated here, can be re-checked with PCP at follow up. - Patient Instructions Diet: Usual Diet as Tolerated Activity: As Tolerated Driving: May Drive Today Showering/Bathing: May Shower Notify Provider of: Fever, Increased Pain, Nausea and/or Vomiting - Discharge Plan *PRESCRIPTION DRUG MONITORING PROGRAM REVIEWED*: Yes *COPY OF PRESCRIPTION DRUG MONITORING REPORT IN PATIENT BRITNEY: Yes Prescriptions/Med Rec: Hydrocodone/Acetaminophen [Hydrocodon-Acetaminophen 5-325] 1 each PO Q4HR PRN # 3 tablet PRN Reason: Pain Ondansetron [Zofran ODT] 4 mg PO Q4H PRN #7 tab.dis PRN Reason: nausea, able to take PO Home Medications: Home Meds Hydrocodone/Acetaminophen [Hydrocodon-Acetaminophen 5-325] 1 each PO Q4HR PRN # 3 tablet 12/24/17 [Rx] Ondansetron [Zofran ODT] 4 mg PO Q4H PRN #7 tab.dis 12/24/17 [Rx] Patient Handouts: Acute Pancreatitis, [id number] Referrals: Allie Millan PA-C [Physician Trade Sales Assistant] - 12/29/17 (Has follow-up appointment on ThursdayDecember 29 ) Cesar Anthony [Primary Care Provider] - - Discharge Summary/Plan Comment DC Time >30 min.: Yes (40) - General Info Date of Service: 12/25/17 Admission Dx/Problem (Free Text: Pancreatitis Subjective Update: In to see Earnest. He is feeling much better today. Nausea has improved and appetite is slowing returning. No abdominal pain. Ambulating. Urinating. No other concerns from nursing. Will D/C home today. His PCP is still Dr. Anthony who will be gone for 2 months in [place], so for now he is seeing Allie Millan PA-C and has an appointment next week for follow up. Functional Status: Reports: Pain Controlled, Tolerating Diet, Ambulating, Urinating - Review of Systems General: Reports: No Symptoms. Denies: Fever, Chills HEENT: Reports: No Symptoms Pulmonary: Reports: No Symptoms. Denies: Shortness of Breath Cardiovascular: Reports: No Symptoms. Denies: Chest Pain Gastrointestinal: Reports: No Symptoms. Denies: Abdominal Pain, Diarrhea, Nausea, Vomiting Genitourinary: Reports: No Symptoms Musculoskeletal: Reports: No Symptoms Skin: Reports: No Symptoms Neurological: Reports: No Symptoms Psychiatric: Reports: No Symptoms - Patient Data Vitals - Most Recent: Last Vital Signs Temp 97.5 F 12/24/17 16:27 Pulse 90 12/24/17 16:27 Resp 18 12/24/17 16:27 BP 123/75 12/24/17 16:27 Pulse Ox 98 12/24/17 16:27 Weight - Most Recent: 230 lb 3.2 oz I&O - Last 24 hours: Intake & Output 12/24/17 12/24/17 12/24/17 06:59 14:59 22:59 Intake Total 60 825 Output Total 2700 Balance 60 -1875 Lab Results - Last 24 hrs: Laboratory Results - last 24 hr 12/23/17 12/24/17 12/24/17 Range/Units 19:59 05:56 05:56 WBC 9.23 H (4.23-9.07) K/mm3 RBC 4.46 L (4.63-6.08) M/mm3 Hgb 12.6 L (13.7-17.5) gm/L Hct 37.7 L (40.1-51.0) % MCV 84.5 (79.0-92.2) fl MCH 28.3 (25.7-32.2) pg MCHC 33.4 (32.2-35.5) g/dl RDW Std Deviation 39.6 (35.1-43.9) fL Plt Count 265 (163-337) K/mm3 MPV 10.3 (9.4-12.3) fl Neut % (Auto) 39.9 (34.0-67.9) % Lymph % (Auto) 37.4 (21.8-53.1) % [place] % (Auto) 13.8 H (5.3-12.2) % Eos % (Auto) 6.4 (0.8-7.0) Baso % (Auto) 1.4 H (0.1-1.2) % Neut # (Auto) 3.69 (1.78-5.38) K/mm3 Lymph # (Auto) 3.45 (1.32-3.57) K/mm3 [place] # (Auto) 1.27 H (0.30-0.82) K/mm3 Eos # (Auto) 0.59 H (0.04-0.54) K/mm3 Baso # (Auto) 0.13 H (0.01-0.08) K/mm3 Manual Slide Review Normal smear Sodium 141 (136-145) mEq/L Potassium 3.8 (3.5-5.1) mEq/L Chloride 108 H (98-107) mEq/L Carbon Dioxide 24 (21-32) mEq/L Anion Gap 12.8 (5-15) BUN 9 (7-18) mg/dL Creatinine 0.9 (0.7-1.3) mg/dL Est Cr Clr Drug Dosing 147.15 mL/min Estimated GFR (MDRD) > 60 (>60) mL/min BUN/Creatinine Ratio 10.0 L (14-18) Glucose 77 (74-106) mg/dL Calcium 8.6 (8.5-10.1) mg/dL Magnesium 1.9 (1.8-2.4) mg/dl Total Bilirubin 0.2 (0.2-1.0) mg/dL AST 18 (15-37) U/L ALT 53 (16-63) U/L Alkaline Phosphatase 46 (46-116) U/L C-Reactive Protein 11.2 H* (<1.0) mg/dL Total Protein 6.3 L (6.4-8.2) g/dl Albumin 3.0 L (3.4-5.0) g/dl Globulin 3.3 gm/dL Albumin/Globulin Ratio 0.9 L (1-2) Lipase 445 H (73-393) U/L Med Orders - Current: Current Medications Acetaminophen (Tylenol) 650 mg PO Q4H PRN PRN Reason: Pain (Mild 1-3)/fever Acetaminophen/Butalbital/Caffeine (Fioricet 325-50-40 Mg) 1 tab PO Q4H PRN PRN Reason: Headache Hydrocodone Bitart/Acetaminophen ([place] 325-5 Mg) 1 tab PO Q4H PRN PRN Reason: Pain (moderate 4-6) Last Admin: 12/24/17 16:14 Dose: 1 tab Hydromorphone HCl (Dilaudid) 1 mg IVPUSH Q4H PRN PRN Reason: Pain (severe 7-10) Sodium Chloride (Normal Saline) 1,000 mls @ 999 mls/hr IV ONETIME MELISSA Last Admin: 12/23/17 16:50 Dose: 999 mls/hr Ondansetron HCl (Zofran Odt) 4 mg PO Q4H PRN PRN Reason: nausea, able to take PO Last Admin: 12/24/17 07:59 Dose: 4 mg Ondansetron HCl (Zofran) 4 mg IV Q4H PRN PRN Reason: Nausea/Vomiting Scopolamine (Transderm-Scop) 1.5 mg TRDERM Q72H PRN PRN Reason: Nausea Sodium Chloride (Saline Flush) 10 ml FLUSH ASDIRECTED PRN PRN Reason: Keep Vein Open Last Admin: 12/23/17 16:37 Dose: 10 ml Temazepam (Restoril) 15 mg PO BEDTIME PRN PRN Reason: Sleep Discontinued Medications Hydromorphone HCl (Dilaudid) 1 mg IVPUSH ONETIME ONE Stop: 12/23/17 16:40 Last Admin: 12/23/17 16:53 Dose: 1 mg Sodium Chloride (Normal Saline) 500 mls @ 999 mls/hr IV .BOLUS ONE Stop: 12/23/17 18:18 Last Admin: 12/23/17 18:02 Dose: 999 mls/hr Ondansetron HCl (Zofran) 4 mg IVPUSH ONETIME ONE Stop: 12/23/17 16:40 Last Admin: 12/23/17 16:51 Dose: 4 mg - Exam Quality Assessment: Reports: DVT Prophylaxis. Denies: Supplemental Oxygen General: Reports: Alert, Oriented, Cooperative, No Acute Distress HEENT: Reports: Pupils Equal, Pupils Reactive, EOMI, Mucous Membr. Moist/[place] Neck: Reports: Supple Lungs: Reports: Clear to Auscultation, Normal Respiratory Effort Cardiovascular: Reports: Regular Rate, Regular Rhythm GI/Abdominal Exam: Normal Bowel Sounds, Soft, Non-Tender, No Organomegaly, No Distention, No Abnormal Bruit, No Mass, Pelvis Stable (Male) Exam: Deferred Rectal (Males) Exam: Deferred Back Exam: Reports: Normal Inspection Extremities: Normal Inspection, Normal Range of Motion, Non-Tender, No Pedal Edema, Normal Capillary Refill Skin: Reports: Warm, Dry, Intact Neurological: Reports: No New Focal Deficit Psy/Mental Status: Reports: Alert, Normal Affect, Normal Mood
[2017-12-25 05:27] VITALS: BP 123/79
== END 2017-12-25 09:30 | disposition home or self-care (01) ==
LOC: JD.ED 15:40 → INTOOBSV 20:41 → JD.MS 20:41
PROVIDERS: ADMIT Internal Medicine Cardiovascular Disease; ATTEND Internal Medicine Cardiovascular Disease
DX: K85.90 Acute pancreatitis without necrosis or infection, unspecified (principal); R74.0 Nonspecific elevation of levels of transaminase and lactic acid dehydrogenase [LDH]; Z87.891 Personal history of nicotine dependence; Z86.69 Personal history of other diseases of the nervous system and sense organs
CPT/HCPCS: 36415; 80053; 80306; 82150; 83690; 83735; 85025; 86140; 96361; 96374; 96375; 99285; A9270; G0480; J1170; J2405; J7040; J7050; G0378

== ENCOUNTER 2019-05-11 10:01 | Emergency (ER) | payer OTHER ==
[2019-05-11 10:11] VITALS: BP 142/88; PULSE 73
--- NOTE | 2019-05-11 10:43 | EDM.PDOC ---
ED HPI GENERAL MEDICAL PROBLEM - General Chief Complaint: Syncope Stated Complaint: ALMOST PASSED OUT Time Seen by Provider: 05/11/19 10:22 Source of Information: Reports: Patient, Family History Limitations: Reports: No Limitations (Friend) - History of Present Illness INITIAL COMMENTS - FREE TEXT/NARRATIVE: 24-year-old male presents to the ED with complaints of near syncope that occurred while seated in workplace today at his desk. Developed sudden onset of tunnel vision and associated dizziness while seated at his desk in school today. He then felt so bad that he decided to get up and leave the classroom but fell to the floor without injury and was able to get back up. He was seen by the school nurse who identified his blood pressure be 144 systolic. Sequelae the vision has improved and he feels. Close back to normal other than feeling a little weak. He was ill last night with 2 loose diarrhea stools without large volume stool loss and some nausea without any vomiting. He did have breakfast this morning. 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 Only medication change was an increase in his anxiety medication(escitalopram) last week from 10-20 mg daily. His Lamictal has stayed 100 mg twice a day for seizure control. He is prone to migraine headaches and has injectable medication for this but hasn't used it for 2 years. He states that he often gets scotomata before he gets a migraine but is never had tunnel vision. Was unaware of any palpitations or shortness of breath during this event. Her pressure in the ED is normal at 137/87. Heart rate is 86 in sinus Onset: Today Onset Date: 05/11/19 Onset Time: 09:25 Duration: Minutes: Location: Reports: Other (Development of scotomata tunnel vision and dizziness while seated at his desk at school today.) Quality: Reports: Other (Sudden onset of blurred vision tunnel vision scotomata without the development of a migraine headache.) Severity: Severe (In terms of resolved before coming to the ED.) Improves with: Reports: None, Other Worsens with: Reports: None (Got better on their own.) Context: Denies: Activity, Exercise, Lifting, Sick Contact, Trauma, Other Associated Symptoms: Reports: Nausea/Vomiting (Perhaps mild transient nausea.), Other. 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 (see below) (Has taken no medications for this.) - Related Data Allergies Allergy/AdvReac Type Severity Reaction Status Date / Time bee pollen Allergy Hives Verified 05/11/19 10:11 ceftriaxone [From Rocephin] Allergy Itching Verified 05/11/19 10:11 Home Meds: Home Meds Escitalopram [Lexapro] 20 mg PO DAILY 12/14/18 [History] Pantoprazole [ProTONIX] 40 mg PO DAILY 12/14/18 [History] lamoTRIgine [Lamotrigine] 100 mg PO BID 05/11/19 [History] Past Medical History - Past Health History Medical/Surgical History: Denies Medical/Surgical History Gastrointestinal History: Reports: Pancreatitis Genitourinary History: Reports: Pyelonephritis Other Genitourinary History: kidney stones in the past. Neurological History: Reports: Migraines, Seizure Psychiatric History: Reports: Anxiety - Infectious Disease History Infectious Disease History: Reports: Chicken Pox - Past Surgical History Head Surgeries/Procedures: Reports: None HEENT Surgical History: Reports: Myringotomy w Tube(s) Dermatological Surgical History: Reports: None Social & Family History - Family History Family Medical History: Noncontributory - Tobacco Use Smoking Status *Q: Never Smoker - Caffeine Use Caffeine Use: Reports: Coffee - Recreational Drug Use Recreational Drug Use: No - Living Situation & Occupation Living situation: Reports: Single, with Significant Other Occupation: Employed ([employer]) ED ROS GENERAL - Review of Systems Review Of Systems: See Below Constitutional: Reports: Malaise, Fatigue. Denies: Fever, Chills HEENT: Reports: No Symptoms, Other Respiratory: Reports: No Symptoms (Vision and visual green have returned to normal.) Cardiovascular: Reports: No Symptoms Endocrine: Reports: No Symptoms GI/Abdominal: Reports: No Symptoms : Reports: No Symptoms Musculoskeletal: Reports: No Symptoms Skin: Reports: No Symptoms Neurological: Reports: Headache (Occasional migraine headaches.), Seizure ( 7with a seizure disorder in December of this year.) Psychiatric: Reports: Anxiety Hematologic/Lymphatic: Reports: No Symptoms Immunologic: Reports: No Symptoms ED EXAM, DIZZINESS - Physical Exam Exam: See Below Exam Limited By: No Limitations General Appearance: Alert, WD/WN, Anxious, Other (Mildly anxious. Dentures 36.3 pulse of 73 and son a structured his 18 BP 142/88 sats are 97% on room air.) Eye Exam: Bilateral Eye: Normal Fundi, Normal Inspection, PERRL Throat/Mouth: Normal Inspection, Normal Lips, Normal Oropharynx Head Exam: Atraumatic, Normocephalic Neck: Normal Inspection, Supple, Non-Tender, Full Range of Motion. No: Lymphadenopathy (L), Lymphadenopathy (R) Respiratory/Chest: No Respiratory Distress, Lungs Clear, Normal Breath Sounds, No Accessory Muscle Use, Chest Non-Tender Cardiovascular: Normal Peripheral Pulses, Regular Rate, Rhythm, No Edema, No Gallop, No Murmur, No Rub GI/Abdominal: Normal Bowel Sounds, Soft, Non-Tender, No Organomegaly, No Abnormal Bruit, No Mass, Pelvis Stable Neurological: Alert, Normal Mood/Affect, Normal Dorsiflexion, CN II-XII Intact, Normal Plantar Flexion, Normal Reflexes, No Motor/Sensory Deficits, Oriented x 3 , Other. No: Abnormal Finger to Nose (No pronator drift. Rapid alternate movements normal.), Babinski DTR: 2+: Bicep (R), Bicep (L), Achilles (R), Achilles (L), 3+: Patella (R), Patella (L) Back Exam: Normal Inspection, Full Range of Motion. No: CVA Tenderness (L), CVA Tenderness (R) Extremities: Normal Inspection, Normal Range of Motion, Non-Tender Psychiatric: Normal Affect, Normal Mood Skin Exam: Warm, Dry, Intact, Normal Color, No Rash EKG INTERPRETATION EKG Date: 05/11/19 Time: 10:36 Rhythm: NSR Rate (Beats/Min): 70 [place]: Normal P-Wave: Present QRS: Other (There is RSR prime wave in V1 and V2 suspect incomplete right bundle branch block. Early R-wave transition consider septal hypertrophy pattern but this baby normal for his age.) ST-T: Normal QT: Normal EKG Interpretation Comments: Borderline ECG Course - Vital Signs Last Recorded V/S: Last Vital Signs Temp 36.3 C 05/11/19 10:08 Pulse 73 05/11/19 10:08 Resp 18 05/11/19 10:08 BP 142/88 H 05/11/19 10:08 Pulse Ox 97 05/11/19 10:08 Orthostatic Blood Pressure [ 136/90 Standing] Orthostatic Blood Pressure [ 136/93 Sitting] Orthostatic Blood Pressure [ 133/74 Supine] - Orders/Labs/Meds Orders: Active Orders 24 hr Category Date Time Status EKG Documentation Completion [RC] STAT Care 05/11/19 10:35 Active Dextrose 5%-0.9% NaCl [Dextrose 5%-Normal Saline] 1,000 Med 05/11/19 10:45 Active ml IV ASDIRECTED Medication Orders Dextrose/Sodium Chloride (Dextrose 5%-Normal Saline) 1,000 mls @ 999 mls/hr IV ASDIRECTED MELISSA Last Admin: 05/11/19 10:56 Dose: 999 mls/hr Labs: Laboratory Tests 05/11/19 05/11/19 Range/Units 10:45 10:55 WBC 8.16 (4.23-9.07) K/mm3 RBC 5.45 (4.63-6.08) M/mm3 Hgb 15.6 (13.7-17.5) gm/dl Hct 44.1 (40.1-51.0) % MCV 80.9 (79.0-92.2) fl MCH 28.6 (25.7-32.2) pg MCHC 35.4 (32.2-35.5) g/dl RDW Std Deviation 39.8 (35.1-43.9) fL Plt Count 314 (163-337) K/mm3 MPV 10.6 (9.4-12.3) fl Neut % (Auto) 55.5 (34.0-67.9) % Lymph % (Auto) 32.2 (21.8-53.1) % [place] % (Auto) 8.5 (5.3-12.2) % Eos % (Auto) 2.9 (0.8-7.0) Baso % (Auto) 0.9 (0.1-1.2) % Neut # (Auto) 4.53 (1.78-5.38) K/mm3 Lymph # (Auto) 2.63 (1.32-3.57) K/mm3 [place] # (Auto) 0.69 (0.30-0.82) K/mm3 Eos # (Auto) 0.24 (0.04-0.54) K/mm3 Baso # (Auto) 0.07 (0.01-0.08) K/mm3 Manual Slide Review Normal smear Sodium 138 (136-145) mEq/L Potassium 3.9 (3.5-5.1) mEq/L Chloride 106 (98-107) mEq/L Carbon Dioxide 24 (21-32) mEq/L Anion Gap 11.9 (5-15) BUN 12 (7-18) mg/dL Creatinine 1.1 (0.7-1.3) mg/dL Est Cr Clr Drug Dosing 118.32 mL/min Estimated GFR (MDRD) > 60 (>60) mL/min BUN/Creatinine Ratio 10.9 L (14-18) Glucose 119 H (74-106) mg/dL Calcium 9.2 (8.5-10.1) mg/dL Magnesium 1.7 L (1.8-2.4) mg/dl Total Bilirubin 0.4 (0.2-1.0) mg/dL AST 18 (15-37) U/L ALT 39 (16-63) U/L Alkaline Phosphatase 59 (46-116) U/L C-Reactive Protein < 0.2 (<1.0) mg/dL Total Protein 7.4 (6.4-8.2) g/dl Albumin 4.4 (3.4-5.0) g/dl Globulin 3.0 gm/dL Albumin/Globulin Ratio 1.5 (1-2) TSH 3rd Generation 1.600 (0.358-3.74) uIU/mL Meds: Medications Generic Name Dose Route Start Last Admin Trade Name Freq PRN Reason Stop Dose Admin Dextrose/Sodium Chloride 1,000 mls @ 999 mls/hr 05/11/19 10:45 05/11/19 10:56 Dextrose 5%-Normal Saline IV 999 mls/hr ASDIRECTED MELISSA Administration - Radiology Interpretation Free Text/Narrative:: 24-year-old male presents to the ED after developing a near syncopal event while seated at his work desk this morning. He states fairly sudden onset of blurred vision followed by tunnel vision and then some scotomata. Associated dizziness and lightheadedness. He stood up to try and walk out of the classroom and fell to the floor without getting hurt. He was able to get himself back up and did get out of the classroom and went to the school nurse. She identified his blood pressure to be 144 systolic. He was not aware of any palpitations or shortness of breath. He has a history of migraine headaches but hasn't had a bad one for a lengthy period of time. He was a little bit ill last evening with 2 loose diarrhea stools a small volume loss and some nausea without vomiting. He may have gotten into some bad food. Emanation including neuro exam at this time is completely normal. ECG will be done. Routine labs to be done. IV will be D5 normal saline at open. I suspect he is developed a classical aura without developing a migraine headache this morning. - Re-Assessments/Exams Free Text/Narrative Re-Assessment/Exam: 05/11/19 10:53 the static BPs supine is 133/74 with a heart rate of 71. Standing heart rate is 136/90 with a heart rate of 73 i.e. no orthostatic hypotension 05/11/19 11:35 Labs are back. White count is normal at 8.16. Auto differential is 55% neutrophils. Hemoglobin is 15.6 with hematocrit of 44.1 platelet count 314,000. Smear is reported as normal. Sodium 138 with potassium of 3.9 chloride 106 bicarbonate 24. Anion gap is 11.9. BUN is 12 with a creatinine of 1.1. Estimated GFR is greater than 60. Glucose is 119 calcium is 9.2 magnesium is slightly low at 1.7. Liver function is normal C-reactive protein is 0.2. Total protein is 7.4 TSH is 1.6 which is normal. Discussed the findings with the patient. Patients significant other indicates that he did have a mild migraine headache last night. Therefore I'm quite confident in stating that he had a migraine aura today without getting the bad headache. He will be returning to work. 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 When he got up to walk away from the desk you stumbled and fell over able to get up without injury. The nurse checked her blood pressure on site and it revealed a systolic blood pressure 144 indicating that your heart rate and blood pressure were normal. Symptoms improved over a period of 15-20 minutes. A history of migraine headaches it appears that today you suffered an migraine aura without getting the bad headache. All of the other investigations in the emergency room such as ECG and lab work proved to be completely normal. You simply given IV fluids while here in the department to make sure that you were hydrated. At this time he may return to work without any work restrictions. - My Orders Last 24 Hours: My Active Orders 05/11/19 10:35 EKG Documentation Completion [RC] STAT 05/11/19 10:45 Dextrose 5%-0.9% NaCl [Dextrose 5%-Normal Saline] 1,000 ml IV ASDIRECTED - Assessment/Plan Last 24 Hours: My Active Orders 05/11/19 10:35 EKG Documentation Completion [RC] STAT 05/11/19 10:45 Dextrose 5%-0.9% NaCl [Dextrose 5%-Normal Saline] 1,000 ml IV ASDIRECTED
[2019-05-11] MEDS ORDERED: Dextrose 5%-0.9% NaCl 1,000 ML IV SCH (10:45)
== END 2019-05-11 11:57 | disposition home or self-care (01) ==
LOC: JD.ED 10:01
DX: G43.109 Migraine with aura, not intractable, without status migrainosus (principal); F41.9 Anxiety disorder, unspecified; G40.909 Epilepsy, unspecified, not intractable, without status epilepticus; Z88.1 Allergy status to other antibiotic agents; Z91.030 Bee allergy status; Z79.899 Other long term (current) drug therapy
CPT/HCPCS: 36415; 80053; 83735; 84443; 85025; 86140; 93005; 96360; 99284; J7042; 93010; 99283

== ENCOUNTER 2019-08-17 23:50 | Emergency (ER) | payer OTHER ==
[2019-08-17] MEDS ORDERED: Midazolam 1 MG/ML 2 ML SDV IVPUSH ONE (23:59)
[2019-08-17] MEDS ORDERED: Sodium Chloride 0.9% 10 ML Syringe FLUSH PRN (23:59)
--- NOTE | 2019-08-18 00:23 | EDM.PDOC ---
ED HPI GENERAL MEDICAL PROBLEM - General Chief Complaint: Neurological Problem Stated Complaint: [facility] Time Seen by Provider: 08/17/19 23:51 Source of Information: Reports: Patient, EMS History Limitations: Reports: Intoxication - History of Present Illness INITIAL COMMENTS - FREE TEXT/NARRATIVE: The patient presents by [facility] for a seizure. The patient has a known history of seizures. He was diagnosed this past summer. Tonight he was at a wine tasting and had a tonic type seizure. He got rigid and then was post ictal where he was confused. EMS came and got an IV in him and he was fine after that. He has not missed any of his medications. He has been getting enough sleep. He has no fever, chills, cough, chest pain, shortness of breath, abdominal pain, nausea or vomiting. Onset: Sudden Duration: Minutes: Location: Reports: Generalized Improves with: Reports: None Worsens with: Reports: None Associated Symptoms: Reports: No Other Symptoms - Related Data Allergies Allergy/AdvReac Type Severity Reaction Status Date / Time bee pollen Allergy Hives Verified 08/17/19 23:51 ceftriaxone [From Rocephin] Allergy Itching Verified 08/17/19 23:51 Home Meds: Home Meds Escitalopram [Lexapro] 20 mg PO DAILY 12/14/18 [History] Pantoprazole [ProTONIX] 40 mg PO DAILY 12/14/18 [History] lamoTRIgine [Lamotrigine] 100 mg PO BID 05/11/19 [History] ALPRAZolam [Xanax] 0.25 mg PO DAILY PRN 08/17/19 [History] Past Medical History - Past Health History Medical/Surgical History: Denies Medical/Surgical History Gastrointestinal History: Reports: Pancreatitis Genitourinary History: Reports: Pyelonephritis Other Genitourinary History: kidney stones in the past. Neurological History: Reports: Migraines, Seizure Psychiatric History: Reports: Anxiety - Infectious Disease History Infectious Disease History: Reports: Chicken Pox - Past Surgical History Head Surgeries/Procedures: Reports: None HEENT Surgical History: Reports: Myringotomy w Tube(s) Dermatological Surgical History: Reports: None Social & Family History - Family History Family Medical History: Noncontributory - Tobacco Use Smoking Status *Q: Never Smoker - Caffeine Use Caffeine Use: Reports: Coffee - Living Situation & Occupation Living situation: Reports: Single, with Significant Other Occupation: Employed ([employer]) ED ROS GENERAL - Review of Systems Review Of Systems: See Below Constitutional: Reports: No Symptoms HEENT: Reports: No Symptoms Respiratory: Reports: No Symptoms Cardiovascular: Reports: No Symptoms Endocrine: Reports: No Symptoms GI/Abdominal: Reports: No Symptoms : Reports: No Symptoms Musculoskeletal: Reports: No Symptoms Skin: Reports: No Symptoms Neurological: Reports: Seizure - Physical Exam Exam: See Below Exam Limited By: No Limitations General Appearance: Alert, No Apparent Distress Ears: Normal External Exam Nose: Normal Inspection Head Exam: Atraumatic, Normocephalic Neck: Normal Inspection Respiratory/Chest: No Respiratory Distress, Lungs Clear, Normal Breath Sounds Cardiovascular: Regular Rate, Rhythm, No Edema, No Murmur GI/Abdominal: Soft, Non-Tender, No Organomegaly, No Mass Neuro Exam (Abbreviated): Alert, Oriented, No Motor/Sensory Deficits Course - Vital Signs Last Recorded V/S: Last Vital Signs Temp 98.5 F 08/17/19 23:54 Pulse 96 08/18/19 02:09 Resp 16 08/18/19 02:09 BP 144/80 H 08/17/19 23:54 Pulse Ox 91 L 08/18/19 02:09 - Orders/Labs/Meds Orders: Active Orders 24 hr Category Date Time Status Cardiac Monitoring [RC] . DIRECTED Care 08/17/19 23:59 Active Peripheral IV Care [RC] . DIRECTED Care 08/17/19 23:59 Active LAMOTRIGINE, SERUM [REF] Stat Lab 08/18/19 00:25 Received Sodium Chloride 0.9% [Normal Saline] 1,000 ml Med 08/18/19 01:29 Active IV ASDIRECTED Sodium Chloride 0.9% [Saline Flush] Med 08/17/19 23:59 Active 10 ml FLUSH ASDIRECTED PRN Peripheral IV Insertion Adult [OM.PC] Stat Oth 08/17/19 23:59 Ordered Medication Orders Sodium Chloride (Normal Saline) 1,000 mls @ 999 mls/hr IV ASDIRECTED MELISSA Last Admin: 08/18/19 01:29 Dose: 999 mls/hr Sodium Chloride (Saline Flush) 10 ml FLUSH ASDIRECTED PRN PRN Reason: Keep Vein Open Last Admin: 08/18/19 00:12 Dose: 10 ml Labs: Laboratory Tests 08/18/19 08/18/19 Range/Units 00:25 00:25 WBC 8.30 (4.23-9.07) K/mm3 RBC 5.69 (4.63-6.08) M/mm3 Hgb 16.2 (13.7-17.5) gm/dl Hct 46.7 (40.1-51.0) % MCV 82.1 (79.0-92.2) fl MCH 28.5 (25.7-32.2) pg MCHC 34.7 (32.2-35.5) g/dl RDW Std Deviation 38.8 (35.1-43.9) fL Plt Count 359 H (163-337) K/mm3 MPV 10.7 (9.4-12.3) fl Neut % (Auto) 52.0 (34.0-67.9) % Lymph % (Auto) 36.4 (21.8-53.1) % [place] % (Auto) 6.7 (5.3-12.2) % Eos % (Auto) 3.1 (0.8-7.0) Baso % (Auto) 1.1 (0.1-1.2) % Neut # (Auto) 4.31 (1.78-5.38) K/mm3 Lymph # (Auto) 3.02 (1.32-3.57) K/mm3 [place] # (Auto) 0.56 (0.30-0.82) K/mm3 Eos # (Auto) 0.26 (0.04-0.54) K/mm3 Baso # (Auto) 0.09 H (0.01-0.08) K/mm3 Sodium 143 (136-145) mEq/L Potassium 3.4 L (3.5-5.1) mEq/L Chloride 106 (98-107) mEq/L Carbon Dioxide 21 (21-32) mEq/L Anion Gap 19.4 H (5-15) BUN 11 (7-18) mg/dL Creatinine 1.0 (0.7-1.3) mg/dL Est Cr Clr Drug Dosing TNP Estimated GFR (MDRD) > 60 (>60) mL/min BUN/Creatinine Ratio 11.0 L (14-18) Glucose 115 H (74-106) mg/dL Calcium 8.9 (8.5-10.1) mg/dL Magnesium 1.8 (1.8-2.4) mg/dl Total Bilirubin 0.2 (0.2-1.0) mg/dL AST 22 (15-37) U/L ALT 43 (16-63) U/L Alkaline Phosphatase 75 (46-116) U/L Total Protein 7.7 (6.4-8.2) g/dl Albumin 4.4 (3.4-5.0) g/dl Globulin 3.3 gm/dL Albumin/Globulin Ratio 1.3 (1-2) Ethyl Alcohol 0.15 (0.00) gm% Meds: Medications Generic Name Dose Route Start Last Admin Trade Name Freq PRN Reason Stop Dose Admin Sodium Chloride 1,000 mls @ 999 mls/hr 08/18/19 01:29 08/18/19 01:29 Normal Saline IV 999 mls/hr ASDIRECTED MELISSA Administration Sodium Chloride 10 ml 08/17/19 23:59 08/18/19 00:12 Saline Flush FLUSH 10 ml ASDIRECTED PRN Administration Keep Vein Open Discontinued Medications Generic Name Dose Route Start Last Admin Trade Name Freq PRN Reason Stop Dose Admin Diazepam 5 mg 08/18/19 03:56 Valium IVPUSH 08/18/19 03:57 ONETIME ONE Diphenhydramine HCl 50 mg 08/18/19 04:14 08/18/19 04:17 Benadryl IVPUSH 08/18/19 04:15 50 mg ONETIME ONE Administration Haloperidol Lactate 5 mg 08/18/19 03:57 08/18/19 04:00 Haldol IVPUSH 08/18/19 03:58 5 mg ONETIME ONE Administration Levetiracetam 500 mg/ Sodium 105 mls @ 400 mls/hr 08/18/19 00:41 08/18/19 00: 48 Chloride IV 08/18/19 00:55 400 mls/hr ONETIME ONE Administration Levetiracetam 500 mg/ Sodium 105 mls @ 400 mls/hr 08/18/19 01:13 08/18/19 01: 30 Chloride IV 08/18/19 01:27 400 mls/hr ONETIME ONE Administration Sodium Chloride Confirm 08/18/19 01:27 08/18/19 01:54 Normal Saline Administered 08/18/19 01:28 Not Given Dose 1,000 mls @ as directed .ROUTE .STK-MED ONE Sodium Chloride 1,000 mls @ 999 mls/hr 08/18/19 02:30 08/18/19 02:30 Normal Saline IV 08/18/19 03:30 999 mls/hr ONETIME ONE Administration Lorazepam Confirm 08/18/19 01:11 08/18/19 01:33 Ativan Administered 08/18/19 01:12 Not Given Dose 2 mg .ROUTE .STK-MED ONE Lorazepam 1 mg 08/18/19 01:14 08/18/19 01:12 Ativan IVPUSH 08/18/19 01:15 1 mg ONETIME ONE Administration Lorazepam 1 mg 08/18/19 01:34 08/18/19 01:22 Ativan IVPUSH 08/18/19 01:35 1 mg ONETIME ONE Administration Lorazepam Confirm 08/18/19 02:17 08/18/19 03:58 Ativan Administered 08/18/19 02:18 Not Given Dose 4 mg .ROUTE .STK-MED ONE Lorazepam 1 mg 08/18/19 02:24 08/18/19 02:24 Ativan IVPUSH 08/18/19 02:25 1 mg ONETIME ONE Administration Lorazepam 1 mg 08/18/19 02:41 08/18/19 02:41 Ativan IVPUSH 08/18/19 02:42 1 mg ONETIME ONE Administration Midazolam HCl 1 mg 08/17/19 23:59 08/18/19 00:11 Versed 1 Mg/Ml IVPUSH 08/18/19 00:00 1 mg ONETIME ONE Administration Midazolam HCl Confirm 08/18/19 00:26 08/18/19 01:33 Versed 1 Mg/Ml Administered 08/18/19 00:27 Not Given Dose 2 mg .ROUTE .STK-MED ONE Midazolam HCl 1 mg 08/18/19 00:32 08/18/19 00:44 Versed 1 Mg/Ml IVPUSH 08/18/19 00:33 1 mg ONETIME ONE Administration Midazolam HCl Confirm 08/18/19 00:51 08/18/19 01:33 Versed 1 Mg/Ml Administered 08/18/19 00:52 Not Given Dose 4 mg .ROUTE .STK-MED ONE Midazolam HCl 1 mg 08/18/19 00:57 08/18/19 00:38 Versed 1 Mg/Ml IVPUSH 08/18/19 00:58 1 mg ONETIME ONE Administration Midazolam HCl 1 mg 08/18/19 00:58 08/18/19 00:32 Versed 1 Mg/Ml IVPUSH 08/18/19 00:59 1 mg ONETIME ONE Administration Midazolam HCl 2 mg 08/18/19 00:53 08/18/19 00:53 Versed 1 Mg/Ml IVPUSH 08/18/19 00:54 2 mg ONETIME ONE Administration Midazolam HCl 2 mg 08/18/19 01:28 08/18/19 01:28 Versed 1 Mg/Ml IVPUSH 08/18/19 01:29 2 mg ONETIME ONE Administration Midazolam HCl 2 mg 08/18/19 02:18 08/18/19 02:20 Versed 1 Mg/Ml IVPUSH 08/18/19 02:19 2 mg ONETIME ONE Administration Midazolam HCl Confirm 08/18/19 02:17 08/18/19 03:58 Versed 1 Mg/Ml Administered 08/18/19 02:18 Not Given Dose 4 mg .ROUTE .STK-MED ONE Ondansetron HCl Confirm 08/18/19 05:10 08/18/19 05:18 Zofran Administered 08/18/19 05:11 Not Given Dose 4 mg .ROUTE .STK-MED ONE Ondansetron HCl 4 mg 08/18/19 05:11 08/18/19 05:12 Zofran IVPUSH 08/18/19 05:12 4 mg ONETIME ONE Administration - Re-Assessments/Exams Free Text/Narrative Re-Assessment/Exam: 08/18/19 00:22 I ordered an IV saline lock, versed 1mg IV, and labs. 08/18/19 07:28 His with and mother came and he started having a seizure where he would tense up and then he was agitated and wanted to get up off of bed. This happened multiple times but mostly him trying to get out of bed. I ordered a total of 10mg of versed and about 5mg of ativan. I then gave him some haldol 5mg IV and benadryl 50mg IV. He then rested. His CBC looks good. His potassium is low at 3.4. His anion gap was elevated at 19.4. His ETOH is elevated at 0.15. He is resting now. I do not think this was status epilepticus but I feel this was the alcohol affect and seizures. I called his neurologist Seda Newellgeraldine in [place] and talked with her nurse. She can see him today at 3pm. His is willing to take him. He will rest here until she comes around noon. Departure - Departure Time of Disposition: 07:40 Disposition: Home, Self-Care 01 Condition: Good Clinical Impression: Seizure Alcohol intoxication Qualifiers: Complication of substance-induced condition: uncomplicated Qualified Code(s): F10.920 - Alcohol use, unspecified with intoxication, uncomplicated - Discharge Information *PRESCRIPTION DRUG MONITORING PROGRAM REVIEWED*: Not Applicable *COPY OF PRESCRIPTION DRUG MONITORING REPORT IN PATIENT BRITNEY: Not Applicable Referrals: PCP,Unknown [Primary Care Provider] - Seda Solitario, [employer] [Nurse Practitioner] - 1 Day Forms: ED Department Discharge Additional Instructions: Follow up with Seda Kassi today at 3pm. Sepsis Event Note - Evaluation Sepsis Screening Result: No Definite Risk - Focused Exam Vital Signs: Vital Signs Temp Pulse Pulse Resp BP Pulse Ox 08/18/19 02:09 96 16 91 L 08/17/19 23:54 98.5 F 95 16 144/80 H 100 Date Exam was Performed: 08/18/19 Time Exam was Performed: 07:27 - My Orders Last 24 Hours: My Active Orders 08/17/19 23:59 Cardiac Monitoring [RC] . DIRECTED Peripheral IV Care [RC] . DIRECTED Sodium Chloride 0.9% [Saline Flush] 10 ml FLUSH ASDIRECTED PRN Peripheral IV Insertion Adult [OM.PC] Stat 08/18/19 00:25 LAMOTRIGINE, SERUM [REF] Stat 08/18/19 01:29 Sodium Chloride 0.9% [Normal Saline] 1,000 ml IV ASDIRECTED - Assessment/Plan Last 24 Hours: My Active Orders 08/17/19 23:59 Cardiac Monitoring [RC] . DIRECTED Peripheral IV Care [RC] . DIRECTED Sodium Chloride 0.9% [Saline Flush] 10 ml FLUSH ASDIRECTED PRN Peripheral IV Insertion Adult [OM.PC] Stat 08/18/19 00:25 LAMOTRIGINE, SERUM [REF] Stat 08/18/19 01:29 Sodium Chloride 0.9% [Normal Saline] 1,000 ml IV ASDIRECTED
[2019-08-18] MEDS ORDERED: Midazolam 1 MG/ML 2 ML SDV ONE ×3 (00:26→02:17)
[2019-08-18] MEDS ORDERED: Midazolam 1 MG/ML 2 ML SDV IVPUSH ONE ×6 (00:32→02:18)
[2019-08-18] MEDS ORDERED: levETIRAcetam 500 MG in Sodium Chloride 0.9% 100 ML IV ONE ×2 (00:41→01:13)
[2019-08-18] MEDS ORDERED: LORazepam 2 MG/ML SDV ONE ×2 (01:11→02:17)
[2019-08-18] MEDS ORDERED: LORazepam 2 MG/ML SDV IVPUSH ONE ×4 (01:14→02:41)
[2019-08-18] MEDS ORDERED: Sodium Chloride 0.9% 1,000 ML ONE (01:27)
[2019-08-18] MEDS ORDERED: Sodium Chloride 0.9% 1,000 ML IV SCH (01:29)
[2019-08-18] MEDS ORDERED: Sodium Chloride 0.9% 1,000 ML IV ONE (02:30)
[2019-08-18] MEDS ORDERED: Haloperidol Lactate 5 MG/ML SDV IVPUSH ONE (03:57)
[2019-08-18] MEDS ORDERED: diphenhydrAMINE 50 MG/ML SDV IVPUSH ONE (04:14)
[2019-08-18] MEDS ORDERED: Ondansetron 4 MG/2 ML SDV ONE (05:10)
[2019-08-18] MEDS ORDERED: Ondansetron 4 MG/2 ML SDV IVPUSH ONE (05:11)
[2019-08-18 12:39] VITALS: BP 117/74; PULSE 100
== END 2019-08-18 12:10 | disposition home or self-care (01) ==
LOC: JD.ED 23:50
DX: R56.9 Unspecified convulsions (principal); F10.920 Alcohol use, unspecified with intoxication, uncomplicated; F41.9 Anxiety disorder, unspecified; Z88.1 Allergy status to other antibiotic agents; Z91.09 Other allergy status, other than to drugs and biological substances; Z79.899 Other long term (current) drug therapy
CPT/HCPCS: 36415; 80053; 80175; 80307; 83735; 85025; 96361; 96365; 96366; 96375; 96376; 99284; J1200; J1630; J1953; J2060; J2250; J2405; J7030; J7050

== ENCOUNTER 2021-04-09 12:36 | Emergency (ER) | payer BC ==
[2021-04-09 13:44] VITALS: BP 146/82; PULSE 81
--- NOTE | 2021-04-09 14:25 | EDM.PDOC ---
ED HPI GENERAL MEDICAL PROBLEM - General Chief Complaint: ENT Problem Stated Complaint: NOSE BLEEDS Time Seen by Provider: 04/09/21 13:38 Source of Information: Reports: Patient History Limitations: Reports: No Limitations - History of Present Illness INITIAL COMMENTS - FREE TEXT/NARRATIVE: 26-year-old male presents the emergency department today with complaints of 6-7 nosebleeds overnight last night. Patient is not actively bleeding in the ED. He states he was concerned due to the fact that he was feeling slightly lightheaded. He states that generally during this time of the year he develops nosebleeds more frequently. He states he does have a humidifier in his bedroom and does use Vaseline or Polysporin twice daily in his nose. He denies any history of bleeding disorders. He states he does use saline nasal spray daily to moisturize his nose. - Related Data Allergies Allergy/AdvReac Type Severity Reaction Status Date / Time bee pollen Allergy Severe Hives Verified 04/09/21 13:45 ceftriaxone [From Rocephin] Allergy Severe Itching Verified 04/09/21 13:45 levetiracetam [From Keppra] Allergy Severe Insomnia Verified 04/09/21 13:45 Home Meds: Home Meds Escitalopram [Lexapro] 20 mg PO DAILY 12/14/18 [History] lamoTRIgine [Lamotrigine] 100 mg PO BID 05/11/19 [History] ALPRAZolam [Xanax] 0.25 mg PO DAILY PRN 08/17/19 [History] Past Medical History - Past Health History Medical/Surgical History: Denies Medical/Surgical History Gastrointestinal History: Reports: Pancreatitis Genitourinary History: Reports: Pyelonephritis, Renal Calculus Other Genitourinary History: kidney stones in the past. Neurological History: Reports: Migraines, Seizure Psychiatric History: Reports: Anxiety - Infectious Disease History Infectious Disease History: Reports: Chicken Pox, Novel Coronavirus - Past Surgical History Head Surgeries/Procedures: Reports: None HEENT Surgical History: Reports: Myringotomy w Tube(s) Male Surgical History: Reports: None Neurological Surgical History: Reports: None Dermatological Surgical History: Reports: None Social & Family History - Family History Family Medical History: No Pertinent Family History - Tobacco Use Tobacco Use Status *Q: Former Tobacco User Used Tobacco, but Quit: Yes Month/Year Tobacco Last Used: 11/2014 - Caffeine Use Caffeine Use: Reports: Coffee, Soda, Tea - Recreational Drug Use Recreational Drug Use: No - Living Situation & Occupation Living situation: Reports: Single, with Significant Other Occupation: Employed ([employer]) ED ROS ENT - Review of Systems Review Of Systems: Comprehensive ROS is negative, except as noted in HPI. ED EXAM, ENT - Physical Exam Exam: See Below Exam Limited By: No Limitations General Appearance: Alert, WD/WN, No Apparent Distress Ears: Normal External Exam, Hearing Grossly Normal Nose: Normal Inspection, No Blood, Injected Turbinates, Other (Numerous areas of superficial capillaries in bilateral naris along the anterior septum however none are actively bleeding.) Mouth/Throat: Normal Inspection, Normal Lips, Normal Oropharynx Head: Atraumatic, Normocephalic Neck: Normal Inspection, Supple Respiratory/Chest: No Respiratory Distress, No Accessory Muscle Use Cardiovascular: Normal Peripheral Pulses GI/Abdominal: No Distention (Male) Exam: Deferred Rectal (Males) Exam: Deferred Back: Normal Inspection Extremities: Normal Inspection Neurological: Alert, Oriented, Normal Cognition Psychiatric: Normal Affect, Normal Mood Skin: Warm, Dry, Intact, Normal Color, No Rash Lymphatic: No Adenopathy Course - Vital Signs Text/Narrative:: As stated above, patient presents with a history of 6-7 nosebleeds throughout the night last night. The time of my exam, patient is hemodynamically stable. He is normotensive and not tachycardic. He does not appear to be anemic. Evaluation of the bilateral nares does not reveal any active bleeding. Patient does have areas of very superficial capillaries in bilateral naris on the anterior septal area. Did offer the patient the option to have these areas cauterized however I did tell him that I do not know that this would be effective and it may cause more bleeding as a result. Also offered to draw an H&H on the patient to make sure his levels were stable and he declined at this time. Patient will be discharged home with recommendations that he continue to use a humidifier in his room. Also recommend that he stop using the saline spray as this could cause his nose to be more dry in the long run. Recommend that he continue using Polysporin/Vaseline in his nares twice daily. Should he develop an active nosebleed that he cannot get stopped recommend that he return to the emergency department. Patient was agreeable with this plan. Last Recorded V/S: Last Vital Signs Temp 97.6 F 04/09/21 13:40 Pulse 81 04/09/21 13:40 Resp 16 04/09/21 13:40 BP 146/82 H 04/09/21 13:40 Pulse Ox 98 04/09/21 13:40 Departure - Departure Time of Disposition: 14:24 Disposition: Home, Self-Care 01 Condition: Good Clinical Impression: Frequent nosebleeds - Discharge Information Instructions: Nosebleed, Adult, [id number] Referrals: Allie Millan PA-C [Primary Care Provider] - Additional Instructions: You were seen in the emergency department for evaluation of nosebleeds. No active bleeding was appreciated on exam however there is numerous areas in both your nares with very superficial capillaries noted. Did discuss option to cauterize this however could lead to more extensive bleeding. Also offered to draw lab values however at this time you declined. Vital signs were stable in the emergency department and you do not appear to be anemic from blood loss. Recommend that you stop using the saline spray in your nose at this time. Be sure to have a humidifier in your home and bedroom during the fall and winter months. Apply Polysporin or Vaseline twice daily to both your naris. Do not blow your nose for the next 24 hours. Should you develop a nosebleed that you cannot get to stop do not hesitate returning to the emergency department. Sepsis Event Note (ED) - Evaluation Sepsis Screening Result: No Definite Risk - Focused Exam Vital Signs: Vital Signs Temp Pulse Resp BP Pulse Ox 04/09/21 13:40 97.6 F 81 16 146/82 H 98
== END 2021-04-09 15:08 | disposition home or self-care (01) ==
LOC: JD.ED 12:36
DX: R04.0 Epistaxis (principal); Z91.048 Other nonmedicinal substance allergy status; Z88.8 Allergy status to other drugs, medicaments and biological substances; Z88.1 Allergy status to other antibiotic agents; Z86.16 Personal history of COVID-19; Z87.891 Personal history of nicotine dependence
CPT/HCPCS: 99283